=== PATIENT | female | born 1950 | race Caucasian/White ===

== ENCOUNTER 2016-04-28 09:56 | Inpatient (IN) | payer MEDICARE ==
--- NOTE | 2016-04-28 10:25 | ED ---
General Adult HPI - General Chief complaint: Shortness of Breath Stated complaint: diff breathing Time Seen by Provider: 04/28/16 10:00 Source: EMS, RN notes reviewed Mode of arrival: EMS Limitations: no limitations - History of Present Illness Initial comments: This is a 65-year-old female presents to the emergency department complaining of difficulty breathing. Patient states she has a past medical history significant for COPD. Patient states she still smokes. Patient comes in today because she has been coughing for the last 2 days and coughing up green sputum. Patient states she also has some difficulty breathing last 2 days and got worse this morning. Patient states she is not on oxygen at home. Patient denies any chest pain or palpitations. Patient denies any fever or chills. Patient denies any abdominal pain patient denies nausea vomiting diarrhea. Patient denies headache patient denies numbness weakness. Patient denies lightheadedness dizziness or near syncopal episode. Patient denies any recent injury or trauma - Related Data Home Medications Medication Instructions Recorded Confirmed Calcium Carbonate/Vitamin D3 1 each PO BID 04/28/16 04/28/16 [Calcium 500-Vit D3 600 Tablet] Allergies Allergy/AdvReac Type Severity Reaction Status Date / Time No Known Allergies Allergy Verified 04/28/16 10:06 Review of Systems ROS Statement: Those systems with pertinent positive or pertinent negative responses have been documented in the HPI. ROS Other: All systems not noted in ROS Statement are negative. Past Medical History Past Medical History: COPD History of Any Multi-Drug Resistant Organisms: None Reported Past Surgical History: No Surgical Hx Reported Past Psychological History: No Psychological Hx Reported Smoking Status: Current every day smoker Past Alcohol Use History: None Reported Past Drug Use History: None Reported General Exam - General Exam Comments Initial Comments: GENERAL: Patient is well-developed and well-nourished. Patient is nontoxic and well- hydrated and is in mild distress. ENT: Neck is soft and supple. No significant lymphadenopathy is noted. Oropharynx is clear. Moist mucous membranes. Neck has full range of motion without eliciting any pain. EYES: The sclera were anicteric and conjunctiva were pink and moist. Extraocular movements were intact and pupils were equal round and reactive to light. Eyelids were unremarkable. PULMONARY: Patient has decreased breath sounds but no wheezing is heard CARDIOVASCULAR: There is a regular rate and rhythm without any murmurs gallops or rubs. ABDOMEN: Soft and nontender with normal bowel sounds. No palpable organomegaly was noted. There is no palpable pulsatile mass. SKIN: Skin is clear with no lesions or rashes and otherwise unremarkable. NEUROLOGIC: Patient is alert and oriented x3. Cranial nerves II through XII are grossly intact. Motor and sensory are also intact. Normal speech, volume and content. Symmetrical smile. MUSCULOSKELETAL: Normal extremities with adequate strength and full range of motion. No lower extremity swelling or edema. No calf tenderness. LYMPHATICS: No significant lymphadenopathy is noted PSYCHIATRIC: Normal psychiatric evaluation. Normal interpersonal interactions appears functionally intact in deals appropriately with others. No signs of depression. No signs of anxiety. Limitations: no limitations Course Vital Signs 04/28/16 04/28/16 04/28/16 10:02 10:09 11:23 Temperature 98.2 F Pulse Rate 72 75 Respiratory 18 18 18 Rate Blood Pressure 134/82 110/69 O2 Sat by Pulse 99 96 Oximetry 04/28/16 04/28/16 12:39 12:46 Temperature Pulse Rate 82 97 Respiratory Rate Blood Pressure O2 Sat by Pulse Oximetry Medical Decision Making - Medical Decision Making EKG shows normal sinus rhythm at 71 bpm. It was on a 52 QRSs 80 QT interval is 436 QTC is 473. Patient's EKG shows T-wave inversions in the precordial leads however there is no EKG to compare to. I went back to reevaluate the patient she was satting at 90% on room air and she was moving very little air. I gave the patient a breathing treatment. Patient states she felt better but again she was very diminished and her pulse ox was low on room air. Spoke with Dr. Mehta he agreed to admit the patient admitted the patient I ordered breathing tubes the floor as well as steroids. Patient also states she was coughing up some green sputum. I started the patient on Levaquin by mouth. - Lab Data Result diagrams: 04/28/16 10:23 04/28/16 10:23 Lab Results 04/28/16 04/28/16 04/28/16 Range/Units 10:23 10:23 10:23 WBC 9.1 (3.8-10.6) k/uL RBC 4.40 (3.80-5.40) m/uL Hgb 14.0 (11.4-16.0) gm/dL Hct 42.4 (34.0-46.0) % MCV 96.3 (80.0-100.0) fL MCH 31.8 (25.0-35.0) pg MCHC 33.0 (31.0-37.0) g/dL RDW 12.9 (11.5-15.5) % Plt Count 310 (150-450) k/uL Neutrophils % 82 % Lymphocytes % 8 % Monocytes % 7 % Eosinophils % 0 % Basophils % 0 % Neutrophils # 7.5 (1.3-7.7) k/uL Lymphocytes # 0.7 L (1.0-4.8) k/uL Monocytes # 0.6 (0-1.0) k/uL Eosinophils # 0.0 (0-0.7) k/uL Basophils # 0.0 (0-0.2) k/uL PT (9.0-12.0) sec INR (<1.1) APTT (22.0-30.0) sec Sodium 137 (137-145) mmol/L Potassium 4.7 (3.5-5.1) mmol/L Chloride 98 (98-107) mmol/L Carbon Dioxide 27 (22-30) mmol/L Anion Gap 12 mmol/L BUN 19 H (7-17) mg/dL Creatinine 0.90 (0.52-1.04) mg/dL Est GFR (MDRD) Af Amer >60 (>60 ml/min/1.73 sqM) Est GFR (MDRD) Non-Af >60 (>60 ml/min/1.73 sqM) Glucose 106 H (74-99) mg/dL Calcium 9.2 (8.4-10.2) mg/dL Magnesium 2.0 (1.6-2.3) mg/dL Total Bilirubin 0.5 (0.2-1.3) mg/dL AST 32 (14-36) U/L ALT 44 (9-52) U/L Alkaline Phosphatase 84 (38-126) U/L Total Creatine Kinase 67 (30-135) U/L CK-MB (CK-2) 1.7 (0.0-2.4) ng/mL CK-MB (CK-2) Rel Index 2.5 Troponin I <0.012 (0.000-0.034) ng/mL Total Protein 6.7 (6.3-8.2) g/dL Albumin 4.0 (3.5-5.0) g/dL 04/28/16 Range/Units 10:23 WBC (3.8-10.6) k/uL RBC (3.80-5.40) m/uL Hgb (11.4-16.0) gm/dL Hct (34.0-46.0) % MCV (80.0-100.0) fL MCH (25.0-35.0) pg MCHC (31.0-37.0) g/dL RDW (11.5-15.5) % Plt Count (150-450) k/uL Neutrophils % % Lymphocytes % % Monocytes % % Eosinophils % % Basophils % % Neutrophils # (1.3-7.7) k/uL Lymphocytes # (1.0-4.8) k/uL Monocytes # (0-1.0) k/uL Eosinophils # (0-0.7) k/uL Basophils # (0-0.2) k/uL PT 10.6 (9.0-12.0) sec INR 1.0 (<1.1) APTT 22.9 (22.0-30.0) sec Sodium (137-145) mmol/L Potassium (3.5-5.1) mmol/L Chloride (98-107) mmol/L Carbon Dioxide (22-30) mmol/L Anion Gap mmol/L BUN (7-17) mg/dL Creatinine (0.52-1.04) mg/dL Est GFR (MDRD) Af Amer (>60 ml/min/1.73 sqM) Est GFR (MDRD) Non-Af (>60 ml/min/1.73 sqM) Glucose (74-99) mg/dL Calcium (8.4-10.2) mg/dL Magnesium (1.6-2.3) mg/dL Total Bilirubin (0.2-1.3) mg/dL AST (14-36) U/L ALT (9-52) U/L Alkaline Phosphatase (38-126) U/L Total Creatine Kinase (30-135) U/L CK-MB (CK-2) (0.0-2.4) ng/mL CK-MB (CK-2) Rel Index Troponin I (0.000-0.034) ng/mL Total Protein (6.3-8.2) g/dL Albumin (3.5-5.0) g/dL Disposition Clinical Impression: Acute exacerbation of chronic obstructive airways disease Disposition: ADMITTED IP TO THIS HOSP Instructions: Acute Bronchitis (ED) Referrals: None,Stated [Primary Care Provider] - 1-2 days Time of Disposition: 13:02
--- NOTE | 2016-04-28 10:36 | XR ---
EXAMINATION TYPE: XR chest 2V DATE OF EXAM: 04/28/2016 10:32 AM COMPARISON: NONE HISTORY: Difficulty breathing FINDINGS: The lungs are clear and there is no pneumothorax, pleural effusion, or focal pneumonia. Calcified gr anuloma right upper lobe. Hyperinflation suggests COPD. Degenerative change of the spine. No overt fa ilure. IMPRESSION: 1. No acute process. Correlate for COPD.
[2016-04-28 10:38] LABS: Basophils % (A) 0 %; CH 31.6; Eosinophils % (A) 0 %; HCT 42.4 % (34.0-46.0); HDW 2.31; Luc # (Auto) 0.27; Luc % (Auto) 3; Lymphocytes # (A) 0.7 k/uL (1.0-4.8); Lymphocytes % (A) 8 %; MCH 31.8 pg (25.0-35.0); MCV 96.3 fL (80.0-100.0); Mean Platelet Volume 6.7; Monocytes # (A) 0.6 k/uL (0-1.0); Monocytes % (A) 7 %; Neutrophils # (A) 7.5 k/uL (1.3-7.7); Neutrophils % (A) 82 %; RDW 12.9 % (11.5-15.5); WBC 9.1 k/uL (3.8-10.6); WBC (Perox) 9.54
[2016-04-28 10:44] LABS: Partial Thromboplastin Time 22.9 sec (22.0-30.0); Prothrombin Time 10.6 sec (9.0-12.0)
[2016-04-28 10:49] LABS: ALT 44 U/L (9-52); AST 32 U/L (14-36); Alkaline Phosphatase 84 U/L (38-126); Anion Gap 12 mmol/L; Blood Urea Nitrogen 19 mg/dL (7-17); Calcium 9.2 mg/dL (8.4-10.2); Carbon Dioxide 27 mmol/L (22-30); Chloride 98 mmol/L (98-107); Glucose 106 mg/dL (74-99); Non-African American GFR(MDRD) >60 (>60 ml/min/1.73 sqM); Potassium 4.7 mmol/L (3.5-5.1); Sodium 137 mmol/L (137-145); Total Bilirubin 0.5 mg/dL (0.2-1.3); Total Protein 6.7 g/dL (6.3-8.2)
[2016-04-28 10:59] LABS: Creatine Kinase 67 U/L (30-135)
[2016-04-28 11:12] LABS: Creatine Kinase MB 1.7 ng/mL (0.0-2.4); Troponin I <0.012 ng/mL (0.000-0.034)
[2016-04-28] MEDS ORDERED: IPRATROPIUM-ALBUTEROL 3 ML NEB INHALATION STA (12:31)
[2016-04-28] MEDS: LEVOFLOXACIN 500 MG TAB PO SCH (17:16)
[2016-04-28] MEDS: methylPREDNISolone SOD SUCCI 125 MG/2 ML VIAL IV SCH (17:17)
[2016-04-28] MEDS: NICOTINE 14MG/24HR PATCH TRANSDERM SCH (20:12)
[2016-04-28] MEDS: ALPRAZolam 0.25 MG TAB PO PRN (20:12)
[2016-04-28] MEDS ORDERED: guaiFENesin 600 MG TABLET.ER PO PRN (22:14)
[2016-04-29] MEDS: methylPREDNISolone SOD SUCCI 125 MG/2 ML VIAL IV SCH ×3 (00:14→12:38)
[2016-04-29] MEDS: TEMAZEPAM 30 MG CAP PO PRN ×2 (00:19→21:29)
[2016-04-29] MEDS: IPRATROPIUM-ALBUTEROL 3 ML NEB INHALATION PRN ×3 (07:38→19:20)
[2016-04-29] MEDS: CALCIUM CARB-VIT D 500MG-200UN 1 EACH TAB PO SCH ×2 (07:46→20:33)
[2016-04-29] MEDS: ASPIRIN 81 MG CHEW PO SCH (07:46)
[2016-04-29] MEDS: HEPARIN SODIUM,PORCINE 5,000 UNIT/ML 1 ML VIAL SQ SCH ×2 (07:46→20:33)
[2016-04-29] MEDS: PANTOPRAZOLE 40 MG TABLET PO SCH (07:46)
[2016-04-29] MEDS: NAPROXEN 250 MG TAB PO SCH (07:47)
[2016-04-29] MEDS: NICOTINE 14MG/24HR PATCH TRANSDERM SCH (07:47)
[2016-04-29] MEDS: INSULIN LISPRO (humaLOG) 300 UNIT/3 ML VIAL SQ SCH ×4 (07:48→20:33)
[2016-04-29 07:49] LABS: Basophils % (A) 0 %; CH 31.7; CHCM 33.3; Eosinophils % (A) 0 %; HDW 2.28; HGB 14.4 gm/dL (11.4-16.0); Luc # (Auto) 0.03; Luc % (Auto) 0; Lymphocytes # (A) 0.5 k/uL (1.0-4.8); Lymphocytes % (A) 6 %; MCH 31.3 pg (25.0-35.0); MCHC 32.7 g/dL (31.0-37.0); MCV 95.7 fL (80.0-100.0); Mean Platelet Volume 6.6; Monocytes # (A) 0.1 k/uL (0-1.0); Monocytes % (A) 2 %; Neutrophils # (A) 7.8 k/uL (1.3-7.7); Neutrophils % (A) 92 %; RDW 12.8 % (11.5-15.5); WBC 8.6 k/uL (3.8-10.6); WBC (Perox) 8.81
[2016-04-29 07:58] LABS: Glucose,Whole Blood 131 mg/dL (75-99)
[2016-04-29] MEDS ORDERED: BUDESONIDE 1 MG/2 ML NEBU INHALATION SCH (08:00)
[2016-04-29] MEDS ORDERED: FORMOTEROL FUMARATE 20 MCG/2 ML NEBU INHALATION SCH (08:00)
[2016-04-29 08:07] LABS: Anion Gap 12 mmol/L; Blood Urea Nitrogen 16 mg/dL (7-17); Calcium 9.3 mg/dL (8.4-10.2); Carbon Dioxide 24 mmol/L (22-30); Chloride 102 mmol/L (98-107); Glucose 133 mg/dL (74-99); Non-African American GFR(MDRD) >60 (>60 ml/min/1.73 sqM); Potassium 4.9 mmol/L (3.5-5.1); Sodium 138 mmol/L (137-145)
[2016-04-29] MEDS: HYDROcodone/APAP 5-325MG 1 EACH TAB PO PRN ×2 (08:48→17:20)
[2016-04-29] MEDS: ALPRAZolam 0.25 MG TAB PO PRN ×2 (08:48→20:33)
--- NOTE | 2016-04-29 09:16 | HP ---
DATE OF ADMISSION: 04/28/2016 CHIEF COMPLAINT: Shortness of breath. HISTORY OF PRESENT ILLNESS: This 65-year-old woman with a past history of COPD, history of DVT, history of depression, being followed by no primary physician in the outpatient setting, was complaining of increasing shortness of breath. The patient apparently is continuing smoking. The patient had shortness of breath for past several days. Because of increasing difficulties the patient came to [facility] and admitted for further evaluation and treatment. The patient also coughing up green sputum also. There is no history of fever or rigors. No history of any headache, loss of consciousness, seizures. Chest x-ray done on admission showed chronic obstructive pulmonary disease without evidence of pneumonia. PAST MEDICAL HISTORY: History of COPD, history of deep venous thrombosis, history of depression. Medications prior to admission include: 2. Aleve 20 mg p.o. daily. 3. Vitamin D3 1 p.o. b.i.d. 4. Aspirin 81 mg daily. ALLERGIES: None. FAMILY HISTORY: History of myocardial infarction in the family. SOCIAL HISTORY: Smoking, currently daily smoking. No history of alcohol intake. REVIEW OF SYSTEMS: ENT: No diminished hearing or diminished vision. CARDIOVASCULAR: No angina or palpitations. RESPIRATORY: As mentioned earlier. GI: No nausea. : No dysuria. NERVOUS SYSTEM: No numbness or weakness. ALLERGY/IMMUNOLOGY: No asthma or hayfever. MUSCULOSKELETAL: As mentioned earlier. HEMATOLOGY: No history of anemia. ENDOCRINE: No history of diabetes or hypothyroidism. CONSTITUTIONAL: As mentioned earlier. DERMATOLOGY: Negative. RHEUMATOLOGY: Negative. PSYCHIATRY: As mentioned earlier PHYSICAL EXAMINATION: The patient is alert and oriented x3. Pulse 71, blood pressure 140/72, respirations 20, temperature is 97.8, pulse ox 97% on 3 L. HEENT: Conjunctivae normal. NECK: No jugular venous distention. CARDIOVASCULAR: S1 and S2, muffled. RESPIRATORY: Breath sounds diminished at the bases. A few scattered rhonchi and crackles. Expiratory wheezing. Chest emphysematous. ABDOMEN: Soft, nontender. No mass palpable. LEGS: No edema, no swelling. NERVOUS SYSTEM: Higher function as mentioned. Moves all four limbs. No focal motor deficits. LYMPHATIC: No lymphadenopathy in the neck, axillae or groin. SKIN: No ulcer, rash or bleeding. JOINTS: No active deforming arthropathy. LABS: CBC within normal limits. BUN is 19, glucose 106. ASSESSMENT: 1. Chronic obstructive pulmonary disease, acute exacerbation with acute purulent tracheobronchitis. 2. Continued ongoing nicotine dependence. 3. Increased random blood sugar possibly secondary to steroids. 4. Chronic obstructive pulmonary disease. 5. History of deep venous thrombosis. 6. History of the depression. 7. Continued ongoing nicotine dependence. 8. Body mass index 78.6 with moderate severe protein calorie malnutrition. RECOMMENDATIONS AND DISCUSSION: In this 65-year-old who presented with multiple complex medical issues, we will monitor the patient closely. Continue the current medications. Continue to optimize bronchodilator treatment, IV steroids. Monitor blood sugars closely. Empiric antibiotics. I also recommend a consultation with Dr. Dill. Otherwise, guarded prognosis because of multiple complex medical issues. Further recommendations to follow. I also recommend the patient to follow up with primary physician in the outpatient setting and as well as DVT prophylaxis as well as stop smoking. ROVERTOD
[2016-04-29 11:26] LABS: Glucose,Whole Blood 142 mg/dL (75-99)
[2016-04-29] MEDS: MULTIVITAMINS, THERA 1 EACH TAB PO SCH (12:38)
[2016-04-29 13:21] LABS: Hemoglobin A1C 5.4 % (4.2-6.1)
--- NOTE | 2016-04-29 14:14 | P.CNPUL ---
History of Present Illness Consult date: 04/29/16 Requesting physician: Gaudencio Mehta Reason for consult: COPD Chief complaint: Shortness of breath History of present illness: This is a 65-year-old white female, smoker, known to have history of COPD, but she is not O2 dependent, not prednisone dependent. Patient came in with 2 days history of cough wheezing shortness of breath. Cough is productive with whitish phlegm. No fever no chills no hemoptysis no chest pain. Chest x-ray showed no evidence of infiltrate, but it was consistent with COPD, emphysema. Patient was admitted, and this consult was initiated. Since admission the patient is already showing significant improvement, hence I believe the patient could be considered for discharge planning either today or tomorrow at the most. Patient denies any headaches no blurred vision no dizziness. No nausea no vomiting no abdominal pain. No melena no hematemesis is no dysuria frequency or urgency. Denies any musculoskeletal symptoms. Overall the patient made a significant improvement since admission. Review of Systems 14 point review of systems were obtained, please refer to pertinent positives and negatives in HPI Past Medical History Past Medical History: COPD, Deep Vein Thrombosis (DVT) Additional Past Medical History / Comment(s): DVT R leg History of Any Multi-Drug Resistant Organisms: None Reported Past Surgical History: No Surgical Hx Reported Additional Past Surgical History / Comment(s): colonoscopy-normal, D&C Past Anesthesia/Blood Transfusion Reactions: No Reported Reaction Past Psychological History: Depression Additional Psychological History / Comment(s): Pt resides alone. She has a cat. She uses no assistive devices. She drives. Smoking Status: Current every day smoker Past Alcohol Use History: None Reported Additional Past Alcohol Use History / Comment(s): Pt states she started smoking at the age of 18 or 19 and is over a ppd smoker. Past Drug Use History: None Reported - Past Family History Father Family Medical History: Myocardial Infarction (DC) Additional Family Medical History / Comment(s): Father of a DC at the age of 54yrs. He also had cardiac valve disease and tuberculosis. Mother Family Medical History: No Reported History Additional Family Medical History / Comment(s): Mother was healthy and lived to be 93 yrs old. Medications and Allergies Home Medications Medication Instructions Recorded Confirmed Type Aspirin 81 mg PO DAILY 04/28/16 04/28/16 History Calcium Carbonate/Vitamin D3 1 each PO BID 04/28/16 04/28/16 History [Calcium 500-Vit D3 600 Tablet] Naproxen Sodium [Aleve] 220 mg PO DAILY 04/28/16 04/28/16 History guaiFENesin [Mucinex] 1,200 mg PO DAILY PRN 04/28/16 04/28/16 History Allergies Allergy/AdvReac Type Severity Reaction Status Date / Time No Known Allergies Allergy Verified 04/28/16 13:41 Physical Exam Vitals: Vital Signs Temp Pulse Pulse Resp BP Pulse Ox 04/29/16 08:47 91 L 04/29/16 08:04 96 04/29/16 07:53 92 04/29/16 07:52 92 04/29/16 07:42 88 88 L 04/29/16 07:30 97.1 F L 73 20 120/82 89 L 04/28/16 22:23 97.8 F 85 16 129/72 95 04/28/16 15:48 71 20 04/28/16 15:00 97.8 F 71 20 140/72 97 Intake and Output 04/28/16 04/29/16 04/29/16 22:59 06:59 14:59 Intake Total 400 Balance 400 Intake: Oral 400 Other: Voiding Method Bedside Commode Bedside Commode # Voids 1 3 Physical Exam: Revealed a 65-year-old female in no distress. HEENT:[Neck is supple.] [No neck masses.] [No thyromegaly.] [No JVD.] Chest: [Slightly diminished breath sounds at the bases, no crackles or rhonchi or wheezes..] Cardiac Exam: [Normal S1 and S2, no S3 gallop, no murmur.] Abdomen: [Soft, nontender, no megaly, no rebound, no guarding, normal bowel sounds.] Extremities: [No clubbing, no edema, no cyanosis.] Neurological Exam: [No focal neurologic deficit.] Results - Laboratory Findings CBC and BMP: 04/29/16 07:16 04/29/16 07:16 PT/INR, D-dimer PT 10.6 sec (9.0-12.0) 04/28/16 10:23 INR 1.0 (<1.1) 04/28/16 10:23 Abnormal lab findings: Abnormal Labs 12/04/29/16 04/29/16 07:16 07:16 07:53 Neutrophils # 7.8 H Lymphocytes # 0.5 L Glucose 133 H POC Glucose (mg/dL) 131 H 04/29/16 11:14 Neutrophils # Lymphocytes # Glucose POC Glucose (mg/dL) 142 H - Diagnostic Findings Chest x-ray: image reviewed (No evidence no evidence of active disease) Assessment and Plan Plan: Impression: Acute exacerbation of COPD, purulent tracheobronchitis, no evidence of pneumonia based on the chest x-ray. History of tobacco dependence syndrome. Recommendation: Patient was counseled regarding smoking cessation, I reviewed her present medications, I believe the patient could be considered for possible discharge planning in the next 24 hours. I will change her Solu-Medrol to oral prednisone, she will remain on oral Levaquin, she will remain on the same bronchodilators including albuterol and Atrovent and Symbicort. Again consider discharge planning later today or in a.m. Time with Patient: Greater than 30
[2016-04-29] MEDS: LEVOFLOXACIN 500 MG TAB PO SCH (15:04)
[2016-04-29] MEDS: predniSONE 10 MG TAB PO SCH (15:04)
[2016-04-29 15:28] VITALS: BMI 17.5
[2016-04-29 17:15] LABS: Glucose,Whole Blood 150 mg/dL (75-99)
[2016-04-29] MEDS: SYMBICORT 160-4.5 MCG INHALER INHALATION SCH (19:20)
[2016-04-29 20:14] LABS: Glucose,Whole Blood 156 mg/dL (75-99)
--- NOTE | 2016-04-29 22:17 | PN ---
DATE OF SERVICE: 04/29/2016 This 65-year-old woman who was admitted with COPD exacerbation, acute purulent tracheobronchitis. Also had history of ongoing nicotine dependence. The patient is severely hypoxemic today after removing the oxygen and the pulse ox dropped into the upper 80s. Dr. Dill evaluation in progress at this time. PAST MEDICAL HISTORY: Reviewed. REVIEW OF SYSTEMS: CARDIOVASCULAR: no angina. RESPIRATORY: As mentioned earlier. GASTROINTESTINAL: As mentioned earlier. : No dysuria. Nervous system: no numbness, weakness. The current medications: 1. Greer 5 mg. 2. DuoNeb q.i.d. and p.r.n. 3. Aspirin. 4. two puffs b.i.d. 5. Os-Ken with Vitamin D. 6. Mucinex. 7. Levaquin 500 daily. 8. Multivitamins. 9. Habitrol. 10. Restoril. PHYSICAL EXAMINATION: The patient is alert and oriented x2. Pulse is 88, blood pressure 120/82, respiratory rate 20, temperature 97.9, pulse ox 89% on 3 L. HEENT: Conjunctivae normal. NECK: No jugular venous distention. CARDIOVASCULAR: S1, S2 muffled. RESPIRATORY: Breath sounds diminished at the bases. Bilateral scattered rhonchi and crackles. ABDOMEN: Soft, nontender. No mass palpable. LEGS: No edema. No swelling. CENTRAL NERVOUS SYSTEM: No focal deficits. Labs are CBC within normal limits and glucose 133. ASSESSMENT: 1. Chronic obstructive pulmonary disease, acute exacerbation, with acute purulent tracheobronchitis. 2. Continued ongoing nicotine dependence. 3. Increased random blood sugar possibly secondary to steroids. 4. Chronic obstructive pulmonary disease. 6. History of deep venous thrombosis. 7. History of depression. 8. Continued ongoing nicotine dependence. 9. Body mass index of 17.6 indicating of severe protein calorie malnutrition. 10. FULL CODE. RECOMMENDATIONS AND DISCUSSION: In this 65-year-old woman who presented with multiple complex medical issues, we will monitor the patient closely, continue the current medications, continue with symptomatic treatment, continue steroids, continue the bronchodilators. Continue with empiric antibiotics. Increase ambulation. Otherwise, Megace for ( ) appetite stimulant. Guarded prognosis because of multiple complex medical issues. Further recommendations to follow. MTDD
[2016-04-30] MEDS: IPRATROPIUM-ALBUTEROL 3 ML NEB INHALATION PRN ×3 (07:02→17:03)
[2016-04-30] MEDS: SYMBICORT 160-4.5 MCG INHALER INHALATION SCH ×2 (07:02→20:56)
[2016-04-30 07:24] LABS: Glucose,Whole Blood 99 mg/dL (75-99)
[2016-04-30 07:48] VITALS: RESP 18
[2016-04-30 08:23] LABS: Basophils % (A) 0 %; CH 31.8; CHCM 33.6; Eosinophils % (A) 0 %; HCT 43.7 % (34.0-46.0); HDW 2.33; HGB 14.6 gm/dL (11.4-16.0); Luc # (Auto) 0.13; Luc % (Auto) 1; Lymphocytes % (A) 7 %; MCH 31.7 pg (25.0-35.0); MCHC 33.3 g/dL (31.0-37.0); MCV 95.1 fL (80.0-100.0); Mean Platelet Volume 6.4; Monocytes # (A) 0.8 k/uL (0-1.0); Monocytes % (A) 6 %; Neutrophils # (A) 12.1 k/uL (1.3-7.7); Neutrophils % (A) 86 %; RDW 12.8 % (11.5-15.5); WBC 14.1 k/uL (3.8-10.6); WBC (Perox) 14.38
[2016-04-30 08:32] LABS: Anion Gap 8 mmol/L; Blood Urea Nitrogen 18 mg/dL (7-17); Calcium 9.5 mg/dL (8.4-10.2); Carbon Dioxide 30 mmol/L (22-30); Chloride 101 mmol/L (98-107); Glucose 102 mg/dL (74-99); Non-African American GFR(MDRD) >60 (>60 ml/min/1.73 sqM); Potassium 4.1 mmol/L (3.5-5.1); Sodium 139 mmol/L (137-145)
[2016-04-30] MEDS: PANTOPRAZOLE 40 MG TABLET PO SCH (08:33)
[2016-04-30] MEDS: INSULIN LISPRO (humaLOG) 300 UNIT/3 ML VIAL SQ SCH ×4 (08:33→20:39)
[2016-04-30] MEDS: NICOTINE 14MG/24HR PATCH TRANSDERM SCH (08:33)
[2016-04-30] MEDS: ASPIRIN 81 MG CHEW PO SCH (08:33)
[2016-04-30] MEDS: CALCIUM CARB-VIT D 500MG-200UN 1 EACH TAB PO SCH ×2 (08:34→20:39)
[2016-04-30] MEDS: predniSONE 10 MG TAB PO SCH (08:34)
[2016-04-30] MEDS: MEGESTROL 40 MG TAB PO SCH (08:34)
[2016-04-30] MEDS: NAPROXEN 250 MG TAB PO SCH (08:34)
[2016-04-30] MEDS: HEPARIN SODIUM,PORCINE 5,000 UNIT/ML 1 ML VIAL SQ SCH ×2 (08:34→20:39)
[2016-04-30] MEDS: ONDANSETRON 4 MG/2 ML VIAL IVP PRN ×2 (09:13→20:39)
[2016-04-30] MEDS: HYDROcodone/APAP 5-325MG 1 EACH TAB PO PRN ×2 (09:17→18:47)
[2016-04-30 11:19] LABS: Glucose,Whole Blood 124 mg/dL (75-99)
--- NOTE | 2016-04-30 14:28 | P.PN ---
Subjective Principal diagnosis: Acute exacerbation of COPD This is a 65-year-old white female, smoker, known to have history of COPD, but she is not O2 dependent, not prednisone dependent. Patient came in with 2 days history of cough wheezing shortness of breath. Cough is productive with whitish phlegm. No fever no chills no hemoptysis no chest pain. Chest x-ray showed no evidence of infiltrate, but it was consistent with COPD, emphysema. Patient was admitted, and this consult was initiated. Since admission the patient is already showing significant improvement, hence I believe the patient could be considered for discharge planning either today or tomorrow at the most. Patient denies any headaches no blurred vision no dizziness. No nausea no vomiting no abdominal pain. No melena no hematemesis is no dysuria frequency or urgency. Denies any musculoskeletal symptoms. Overall the patient made a significant improvement since admission. Reevaluated on 04/30/2016, patient continues to have some shortness of breath with any activity, requiring oxygen, patient in the meantime would like to be discharged home. I explained to the patient today that we could potentially send her home on the same course of bronchodilators we have her on plus home O2 if she qualifies for home oxygen with 6 minute walk today. Or if the patient remains desaturating below 89% on room air. Then she basically qualifies for home O2. Patient never had oxygen at home before, and she was smoking until very recently. I explained to her the importance of follow-up with me regarding her COPD on outpatient basis. Objective - Vital Signs Vital signs: Vital Signs Temp 97.7 F 04/30/16 07:00 Pulse 84 04/30/16 11:19 Resp 18 04/30/16 07:00 BP 110/71 04/30/16 07:00 Pulse Ox 84 L 04/30/16 14:17 Intake & Output 04/29/16 04/30/16 04/30/16 18:59 06:59 18:59 Weight 42.184 kg Other: Voiding Method Bedside Commode Bedside Commode Bedside Commode # Voids 2 1 - Exam Physical Exam: Revealed a 65-year-old female in no distress. HEENT:[Neck is supple.] [No neck masses.] [No thyromegaly.] [No JVD.] Chest: [Slightly diminished breath sounds at the bases, no crackles or rhonchi or wheezes..] Cardiac Exam: [Normal S1 and S2, no S3 gallop, no murmur.] Abdomen: [Soft, nontender, no megaly, no rebound, no guarding, normal bowel sounds.] Extremities: [No clubbing, no edema, no cyanosis.] Neurological Exam: [No focal neurologic deficit.] - Labs CBC & Chem 7: 04/30/16 07:43 04/30/16 07:43 Labs: Abnormal Lab Results - Last 24 Hours (Table) 04/29/16 04/29/16 04/30/16 Range/Units 17:02 20:13 07:43 WBC 14.1 H (3.8-10.6) k/uL Neutrophils # 12.1 H (1.3-7.7) k/uL BUN (7-17) mg/dL Glucose (74-99) mg/dL POC Glucose (mg/dL) 150 H 156 H (75-99) mg/dL 04/30/16 04/30/16 Range/Units 07:43 11:17 WBC (3.8-10.6) k/uL Neutrophils # (1.3-7.7) k/uL BUN 18 H (7-17) mg/dL Glucose 102 H (74-99) mg/dL POC Glucose (mg/dL) 124 H (75-99) mg/dL Assessment and Plan Plan: Impression: Acute exacerbation of COPD, purulent tracheobronchitis, no evidence of pneumonia based on the chest x-ray. History of tobacco dependence syndrome. Recommendation: Patient was counseled regarding smoking cessation, I reviewed her present medications, I believe the patient could be considered for possible discharge planning in the next 24 hours. I will change her Solu-Medrol to oral prednisone, she will remain on oral Levaquin, she will remain on the same bronchodilators including albuterol and Atrovent and Symbicort. Again consider discharge planning later today, can set up for home O2 and if she qualifies the patient could go home on oxygen 2 L nasal cannula. And she will remain on the same bronchodilators as listed on this admission, plus prednisone 30 mg tapered over 2 weeks. Must have follow-up with me in the office within few days. Time with Patient: Less than 30
[2016-04-30] MEDS: LEVOFLOXACIN 500 MG TAB PO SCH (15:24)
[2016-04-30] MEDS: MULTIVITAMINS, THERA 1 EACH TAB PO SCH (15:24)
[2016-04-30 18:29] LABS: Glucose,Whole Blood 144 mg/dL (75-99)
[2016-04-30 20:11] LABS: Glucose,Whole Blood 133 mg/dL (75-99)
[2016-04-30] MEDS: ALPRAZolam 0.25 MG TAB PO PRN (20:39)
[2016-04-30] MEDS: TEMAZEPAM 30 MG CAP PO PRN (21:58)
[2016-05-01] MEDS: SYMBICORT 160-4.5 MCG INHALER INHALATION SCH (07:01)
[2016-05-01 07:08] LABS: Glucose,Whole Blood 94 mg/dL (75-99)
[2016-05-01 08:04] LABS: Basophils % (A) 0 %; CH 31.7; CHCM 33.5; Eosinophils % (A) 0 %; HCT 43.3 % (34.0-46.0); HDW 2.35; HGB 14.4 gm/dL (11.4-16.0); Luc # (Auto) 0.14; Luc % (Auto) 1; Lymphocytes # (A) 1.9 k/uL (1.0-4.8); Lymphocytes % (A) 18 %; MCH 31.5 pg (25.0-35.0); MCHC 33.1 g/dL (31.0-37.0); MCV 95.2 fL (80.0-100.0); Mean Platelet Volume 6.4; Monocytes # (A) 0.8 k/uL (0-1.0); Monocytes % (A) 7 %; Neutrophils # (A) 7.7 k/uL (1.3-7.7); Neutrophils % (A) 73 %; RBC 4.55 m/uL (3.80-5.40); RDW 12.9 % (11.5-15.5); WBC 10.5 k/uL (3.8-10.6); WBC (Perox) 10.77
[2016-05-01 08:18] LABS: Anion Gap 8 mmol/L; Blood Urea Nitrogen 15 mg/dL (7-17); Calcium 9.5 mg/dL (8.4-10.2); Carbon Dioxide 31 mmol/L (22-30); Chloride 100 mmol/L (98-107); Glucose 88 mg/dL (74-99); Non-African American GFR(MDRD) >60 (>60 ml/min/1.73 sqM); Potassium 4.2 mmol/L (3.5-5.1); Sodium 139 mmol/L (137-145)
[2016-05-01] MEDS: INSULIN LISPRO (humaLOG) 300 UNIT/3 ML VIAL SQ SCH ×2 (08:44→11:34)
[2016-05-01] MEDS: MEGESTROL 40 MG TAB PO SCH (08:46)
[2016-05-01] MEDS: ASPIRIN 81 MG CHEW PO SCH (08:46)
[2016-05-01] MEDS: NAPROXEN 250 MG TAB PO SCH (08:46)
[2016-05-01] MEDS: NICOTINE 14MG/24HR PATCH TRANSDERM SCH (08:46)
[2016-05-01] MEDS: CALCIUM CARB-VIT D 500MG-200UN 1 EACH TAB PO SCH (08:46)
[2016-05-01] MEDS: HEPARIN SODIUM,PORCINE 5,000 UNIT/ML 1 ML VIAL SQ SCH (08:46)
[2016-05-01] MEDS: PANTOPRAZOLE 40 MG TABLET PO SCH (08:47)
[2016-05-01] MEDS: predniSONE 10 MG TAB PO SCH (08:47)
[2016-05-01 11:23] LABS: Glucose,Whole Blood 96 mg/dL (75-99)
[2016-05-01] MEDS: MULTIVITAMINS, THERA 1 EACH TAB PO SCH (11:59)
--- NOTE | 2016-05-01 12:09 | PN ---
DATE OF SERVICE: 04/30/2016 This 65-year-old woman who was admitted with COPD acute exacerbation, acute purulent tracheobronchitis is improved slightly. No chest pain, no palpitations. No fever. Patient is still short of breath. Patient is keen on going home. On exam, alert and oriented x3. Pulse 69, blood pressure 130/72, respirations 18, temperature 97.2, pulse ox 93% on 4-L. HEENT: Conjunctivae normal. NECK: No jugular venous distention. CARDIOVASCULAR: S1 and S2, muffled. RESPIRATORY: Breath sounds diminished at the bases. Bilateral scattered rhonchi and crackles. ABDOMEN: Soft, nontender. LEGS: No edema, no swelling. NERVOUS SYSTEM: No focal deficits. LABS: WBC 14. Accu-Cheks noted. ASSESSMENT: 1. Chronic obstructive pulmonary disease acute exacerbation with acute purulent tracheobronchitis. 2. Continued ongoing nicotine dependence. 3. Chronic hypoxic respiratory failure. 4. Increased random blood sugar possibly secondary steroids. 5. History of chronic obstructive pulmonary disease. 6. History of deep venous thrombosis. 7. History of depression. 8. History of continued ongoing nicotine dependence. 9. Body mass index 17.3 indicating severe protein calorie malnutrition. 10. FULL CODE. RECOMMENDATIONS AND DISCUSSION: I recommend to continue the current medications, continue monitoring and symptomatic treatment. Continue with current medications, arrange bronchodilators and home oxygen at home. Guarded prognosis because of multiple complex medical issues. Further recommendations to follow.
[2016-05-01 14:48] VITALS: BP 138/80; PULSE 80; TEMP 97.9
--- NOTE | 2016-05-01 15:34 | P.PN ---
Subjective Principal diagnosis: Acute exacerbation of COPD This is a 65-year-old white female, smoker, known to have history of COPD, but she is not O2 dependent, not prednisone dependent. Patient came in with 2 days history of cough wheezing shortness of breath. Cough is productive with whitish phlegm. No fever no chills no hemoptysis no chest pain. Chest x-ray showed no evidence of infiltrate, but it was consistent with COPD, emphysema. Patient was admitted, and this consult was initiated. Since admission the patient is already showing significant improvement, hence I believe the patient could be considered for discharge planning either today or tomorrow at the most. Patient denies any headaches no blurred vision no dizziness. No nausea no vomiting no abdominal pain. No melena no hematemesis is no dysuria frequency or urgency. Denies any musculoskeletal symptoms. Overall the patient made a significant improvement since admission. Reevaluated on 04/30/2016, patient continues to have some shortness of breath with any activity, requiring oxygen, patient in the meantime would like to be discharged home. I explained to the patient today that we could potentially send her home on the same course of bronchodilators we have her on plus home O2 if she qualifies for home oxygen with 6 minute walk today. Or if the patient remains desaturating below 89% on room air. Then she basically qualifies for home O2. Patient never had oxygen at home before, and she was smoking until very recently. I explained to her the importance of follow-up with me regarding her COPD on outpatient basis. Reevaluated on 05/01/2016, feeling better, patient is wondering if she could be discharged home. Patient qualified for home O2, and clearly she has severe underlying COPD, patient is maximized on present course of bronchodilators. Considering her slight improvement, I believe it is not inappropriate to initiate discharge planning for today or tomorrow. On physical examination she has mostly diminished breath sounds bilaterally, some wheezing on forced expiratory maneuver only. Objective - Vital Signs Vital signs: Vital Signs Temp 97.9 F 05/01/16 14:46 Pulse 80 05/01/16 14:46 Resp 18 05/01/16 14:46 BP 138/80 05/01/16 14:46 Pulse Ox 91 L 05/01/16 15:25 Intake & Output 04/30/16 05/01/16 05/01/16 18:59 06:59 18:59 Intake Total 315 Balance 315 Intake: Oral 315 Other: Voiding Method Bedside Commode Bedside Commode Bedside Commode # Voids 1 2 1 - Exam Physical Exam: Revealed a 65-year-old female in no distress. HEENT:[Neck is supple.] [No neck masses.] [No thyromegaly.] [No JVD.] Chest: [Slightly diminished breath sounds at the bases, slight wheezing on forced expiratory maneuver] Cardiac Exam: [Normal S1 and S2, no S3 gallop, no murmur.] Abdomen: [Soft, nontender, no megaly, no rebound, no guarding, normal bowel sounds.] Extremities: [No clubbing, no edema, no cyanosis.] Neurological Exam: [No focal neurologic deficit.] - Labs CBC & Chem 7: 05/01/16 07:24 05/01/16 07:24 Labs: Abnormal Lab Results - Last 24 Hours (Table) 04/30/16 04/30/16 05/01/16 Range/Units 17:39 19:58 07:24 Carbon Dioxide 31 H (22-30) mmol/L POC Glucose (mg/dL) 144 H 133 H (75-99) mg/dL Assessment and Plan Plan: Impression: Acute exacerbation of COPD, purulent tracheobronchitis, no evidence of pneumonia based on the chest x-ray. History of tobacco dependence syndrome. Recommendation: Patient was counseled regarding smoking cessation, I reviewed her present medications, I believe the patient could be considered for possible discharge planning today patient is presently on prednisone instead of Solu- Medrol, she will remain on oral Levaquin, she will remain on the same bronchodilators including albuterol and Atrovent and Symbicort. Again consider discharge planning later today, can set up for home O2 and if she qualifies the patient could go home on oxygen 2 L nasal cannula. And she will remain on the same bronchodilators as listed on this admission, plus prednisone 30 mg tapered over 2 weeks. Must have follow-up with me in the office within few days. Time with Patient: Less than 30
[2016-05-01] MEDS: HYDROcodone/APAP 5-325MG 1 EACH TAB PO PRN (15:50)
[2016-05-01] MEDS: LEVOFLOXACIN 500 MG TAB PO SCH (15:50)
--- NOTE | 2016-05-03 17:00 | DS ---
DATE OF ADMISSION: 04/28/2016 DATE OF DISCHARGE: 05/01/2016 FINAL DIAGNOSIS(ES): 1. Chronic obstructive pulmonary disease acute exacerbation, with acute purulent tracheobronchitis. 2. Continued ongoing nicotine dependence. 3. Chronic hypoxic respiratory failure on home O2 nasal cannula 3.5 liters. 4. Increased random blood sugar possibly secondary to steroids. 5. History of chronic obstructive pulmonary disease. 6. History of deep venous thrombosis. 7. History of depression. 8. Body mass index 17.9 indication severe protein calorie malnutrition. 9. FULL CODE. DISCHARGE DISPOSITION: The patient will be discharged in a stable condition with guarded prognosis. Dr. Dill cleared the patient for discharge. HISTORY OF PRESENT ILLNESS: This 65 -year-old woman with past medical history of multiple medical problems including chronic obstructive pulmonary disease was admitted with chronic obstructive pulmonary disease acute exacerbation. Treated with bronchodilators and steroids, antibiotics and improved significantly. On exam, vital signs are stable. CARDIOVASCULAR SYSTEM: S1, S2 muffled. ABDOMEN: Soft. Nontender. RESPIRATORY: Breath sounds diminished at the bases. ABDOMEN: Soft, nontender. CENTRAL NERVOUS SYSTEM: No focal deficits. DISCHARGE ADVICE AND MEDICATIONS: 1. Discharge diet: Cardiac. 2. Activity limited until follow-up. 3. Follow up with Dr. Dill. 4. Follow-up with Dr. Campos 2 to 3 days. 5. Medications are Xanax 0.5 p.o. t.i.d. p.r.n. 6. Aspirin 81 mg p.o. daily. 7. Symbicort 150/4.5 2 puffs b.i.d. 8. Calcium with vitamin D one p.o. b.i.d. 9. Albuterol/Atrovent updrafts q.i.d. and p.r.n. 10. Levaquin 500 mg p.o. daily for 5 days. 11. Megace 40 mg p.o. daily. 12. Multivitamins one p.o. daily. 13. Aleve 220 mg p.o. daily. 14. Habitrol 14 daily. 15. Mucinex 20 milligrams p.o. daily. 16. Prednisone taper 40 mg daily for 3 days, 30 for 3 days, 20 for 3 days, 10 for 3 days and the stop. MTDD
== END 2016-05-01 16:52 | disposition home or self-care (01) | DRG 190 ==
LOC: EC 09:56 → 5MS5E 13:03
PROVIDERS: ADMIT Hospitalist; ATTEND Hospitalist
DX: J44.0 Chronic obstructive pulmonary disease with (acute) lower respiratory infection (principal); E43 Unspecified severe protein-calorie malnutrition; J96.11 Chronic respiratory failure with hypoxia; Z68.1 Body mass index [BMI] 19.9 or less, adult; J44.1 Chronic obstructive pulmonary disease with (acute) exacerbation; J20.9 Acute bronchitis, unspecified; Z99.81 Dependence on supplemental oxygen; T38.0X5A Adverse effect of glucocorticoids and synthetic analogues, initial encounter; R73.9 Hyperglycemia, unspecified; Z87.891 Personal history of nicotine dependence; Z86.59 Personal history of other mental and behavioral disorders; Z86.718 Personal history of other venous thrombosis and embolism; Z79.82 Long term (current) use of aspirin; Z79.1 Long term (current) use of non-steroidal anti-inflammatories (NSAID); Z79.899 Other long term (current) drug therapy
CPT/HCPCS: 36415; 71020; 80048; 80053; 82550; 82553; 83036; 83735; 84484; 85025; 85610; 85730; 93005; 94640; 94760; 99285

== ENCOUNTER → 2016-06-07 | Outpatient (CLI) | payer MEDICARE ==
--- NOTE | 2016-06-07 15:31 | BD ---
EXAMINATION TYPE: MG DEXA axial skeleton. DATE OF EXAM: 06/07/2016 9:26 CLINICAL HISTORY: 66-year-old female postmenopausal without HRT Height: 60.50 Weight: 97 pounds FRAX RISK QUESTIONS: Alcohol (3 or more units per day): no Family History (Parent hip fracture): no Glucocorticoids (More than 3mos): no (Ex: prednisone, prednisolone, methylprednisolone, dexamethasone, and hydrocortisone). History of Fracture in Adulthood: yes Secondary Osteoporosis: 1. Type 1 Diabetes: no 2. Hyperthyroidism: no 3. Menopause before 45: no 4. Malnutrition: no 5. Chronic liver disease: no Rheumatoid Arthritis: yes, years ago was told ankle displayed Current Tobacco Use: not now RISK FACTORS HISTORY OF: History of Wrist Fracture: yes When: in late 90s Family History of Osteoporosis: yes, sister Drink Alcohol: rarely Active: yes Diet low in dairy products/other sources of calcium: no Postmenopausal woman: yes Take estrogen and/or progesterone medications: no Lost more than 2 inches in height since high school: no Frequent falls: no Poor Health: no Hyperparathyroidism: no Adrenal Insufficiency: no MEDICATIONS: Prednisone or other steroids: no Thyroid Medications: no Osteoporosis Medications: no EXAM MEASUREMENTS: Bone mineral densitometry was performed using the [email or web address] System. Bone mineral density as measured about the Lumbar spine is: ----- L1-L4(G/cm2): 0.767 T Score Values are as follows: ----- L2: -4.1 ----- L3: -3.2 ----- L4: -2.7 ----- L1-L4: -3.4 Bone mineral density has: Decreased -13.9% since study of: 10/02/2006 Bone mineral density about the R hip (g/cm2): 0.551 Bone mineral density about the L hip (g/cm2): 0.601 T Score values are as follows: -----R Neck: -3.5 -----L Neck: -3.1 -----R Intertrochanter: -3.6 -----L Intertrochanter: -3.8 Bone mineral density has: Decreased -24.1% since study of: 10/02/2006 IMPRESSION: Osteoporosis as indicated by T score values in the lumbar spine and both hips. There is increased fracture risk and therapy is usually indicated based on age. Re-Screen 1-2 years. NOTE: T-SCORE=SD OF THE YOUNG ADULT MEAN.
--- NOTE | 2016-06-08 11:43 | MM ---
Reason for exam: screening (asymptomatic). Last mammogram was performed 8 years and 1 month ago. History: Patient is postmenopausal and had first child at age 33. Family history of breast cancer in sister at age 55. Physical Findings: A clinical breast exam by your physician is recommended on an annual basis and results should be correlated with mammographic findings. MG 3D Screening Mammo W/Cad Bilateral CC and MLO view(s) were taken. Prior study comparison: May 18, 2008, bilateral digital screening mammogram. October 02, 2006, bilateral screening mammogram w/CAD. The breast tissue is heterogeneously dense. This may lower the sensitivity of mammography. Finding: There are dystrophic calcifications in the upper quadrant, posterior position of the right breast. There is no discrete abnormality. ASSESSMENT: Benign, BI-RAD 2 RECOMMENDATION: Routine screening mammogram of both breasts in 1 year.
== END | disposition home or self-care (01) ==
LOC: RADMAMWWP 09:23
PROVIDERS: ATTEND Family Medicine
DX: Z12.31 Encounter for screening mammogram for malignant neoplasm of breast (principal); M81.0 Age-related osteoporosis without current pathological fracture; Z78.0 Asymptomatic menopausal state
CPT/HCPCS: 77080; 77063; G0202

== ENCOUNTER 2018-10-20 09:21 | Emergency (ER) | payer MEDICARE ==
[2018-10-20 09:31] VITALS: TEMP 97.6
[2018-10-20] MEDS ORDERED: ONDANSETRON 4 MG/2 ML VIAL IVP STA (10:18)
[2018-10-20] MEDS ORDERED: SODIUM CHLORIDE 0.9% 1,000 ML IV STA (10:18)
[2018-10-20] MEDS ORDERED: KETOROLAC 30 MG/ML 1 ML VIAL IVP STA (10:18)
--- NOTE | 2018-10-20 10:25 | ED ---
Headache HPI - General Chief Complaint: Headache Stated Complaint: migraine x 4 days Time Seen by Provider: 10/20/18 10:03 Mode of arrival: wheelchair Limitations: no limitations - History of Present Illness Initial Comments: Patient is a 68-year-old female presenting to the emergency Department with complaints of a migraine x 4 days. Patient states she has a history of migrai sol but they typically don't last this long. Patient states she has tried Excedrin for migraine and Motrin without improvement. Patient also admits to nausea, vomiting, photophobia. Patient denies any changes in vision, weakness in arms or legs, cough, shortness of breath, chest pain, or falls. Patient has no other complaints at this time. - Related Data Home Medications Medication Instructions Recorded Confirmed Naproxen Sodium [Aleve] 440 mg PO DAILY 04/28/16 04/28/16 Albuterol Inhaler [Ventolin Hfa 1 - 2 puff INHALATION RT-Q6H PRN 10/20/18 10/20/18 Inhaler] Alendronate Sodium [Fosamax] 70 mg PO Q7D 10/20/18 10/20/18 Aspirin/Acetaminophen/Caffeine 1 tab PO Q12H PRN 10/20/18 10/20/18 [Excedrin Migraine Caplet] Budesonide [Pulmicort Flexhaler] 2 puff INHALATION RT-BID 10/20/18 10/20/18 Calcium Carbonate [Calcium] 600 mg PO DAILY 10/20/18 10/20/18 Multivitamins, Thera [Multivitamin 1 tab PO DAILY@1200 10/20/18 (formulary)] Allergies Allergy/AdvReac Type Severity Reaction Status Date / Time No Known Allergies Allergy Verified 10/20/18 10:04 Review of Systems ROS Statement: Those systems with pertinent positive or pertinent negative responses have been documented in the HPI. ROS Other: All systems not noted in ROS Statement are negative. Past Medical History Past Medical History: COPD, Deep Vein Thrombosis (DVT) Additional Past Medical History / Comment(s): DVT R leg History of Any Multi-Drug Resistant Organisms: None Reported Past Surgical History: No Surgical Hx Reported Additional Past Surgical History / Comment(s): colonoscopy-normal, D&C Past Anesthesia/Blood Transfusion Reactions: No Reported Reaction Past Psychological History: Depression Smoking Status: Current every day smoker Past Alcohol Use History: None Reported Past Drug Use History: None Reported - Past Family History Father Family Medical History: Myocardial Infarction (SC) Additional Family Medical History / Comment(s): Father of a SC at the age of 54yrs. He also had cardiac valve disease and tuberculosis. Mother Family Medical History: No Reported History Additional Family Medical History / Comment(s): Mother was healthy and lived to be 93 yrs old. General Exam - General Exam Comments Initial Comments: GENERAL: Well-appearing, well-nourished and in no acute distress, although appears uncomfortable. HEAD: Atraumatic, normocephalic. EYES: Pupils equal round and reactive to light, extraocular movements intact, sclera anicteric, conjunctiva are normal. ENT: TMs normal, nares patent, oropharynx clear without exudates. Moist mucous membranes. NECK: Normal range of motion, supple without lymphadenopathy or JVD. LUNGS: Breath sounds clear to auscultation bilaterally and equal. No wheezes rales or rhonchi. HEART: Regular rate and rhythm without murmurs, rubs or gallops. ABDOMEN: Soft, nontender, normoactive bowel sounds. No guarding, no rebound. No masses appreciated. : Deferred EXTREMITIES: Normal range of motion, no pitting or edema. No clubbing or cyanosis. 4/5 strength equal and bilateral upper and lower extremities. NEUROLOGICAL: Cranial nerves II through XII grossly intact. Normal speech, normal gait. Sensation equal and bilateral. PSYCH: Normal mood, normal affect. SKIN: Warm, Dry, normal turgor, no rashes or lesions noted. Limitations: no limitations Course Vital Signs 10/20/18 10/20/18 09:27 13:40 Temperature 97.6 F Pulse Rate 72 78 Respiratory 18 16 Rate Blood Pressure 153/84 150/74 O2 Sat by Pulse 95 98 Oximetry Medical Decision Making - Medical Decision Making Patient is 68-year-old female with complaints of a migraine 4 days. Patient has history of migraines states he never lasted this long. Patient also admits to associated nausea and vomiting. Patient is exam is normal including neuro exam. CBC, CMP, UA are not impressive. Patient reports improvement with fluids, Toradol, Zofran. Case discussed with Dr. Joyce. Patient will be discharged home. Patient is okay with this plan. Return parameters were discussed. - Lab Data Result diagrams: 10/20/18 10:32 10/20/18 10:32 Lab Results 10/20/18 10/20/18 10/20/18 Range/Units 10:32 10:32 13:45 WBC 6.4 (3.8-10.6) k/uL RBC 4.15 (3.80-5.40) m/uL Hgb 12.4 (11.4-16.0) gm/dL Hct 38.2 (34.0-46.0) % MCV 92.2 (80.0-100.0) fL MCH 30.0 (25.0-35.0) pg MCHC 32.5 (31.0-37.0) g/dL RDW 13.2 (11.5-15.5) % Plt Count 407 (150-450) k/uL Neutrophils % 79 % Lymphocytes % 15 % Monocytes % 4 % Eosinophils % 0 % Basophils % 0 % Neutrophils # 5.1 (1.3-7.7) k/uL Lymphocytes # 1.0 (1.0-4.8) k/uL Monocytes # 0.2 (0-1.0) k/uL Eosinophils # 0.0 (0-0.7) k/uL Basophils # 0.0 (0-0.2) k/uL Sodium 136 L (137-145) mmol/L Potassium 4.1 (3.5-5.1) mmol/L Chloride 102 (98-107) mmol/L Carbon Dioxide 24 (22-30) mmol/L Anion Gap 10 mmol/L BUN 19 H (7-17) mg/dL Creatinine 0.97 (0.52-1.04) mg/dL Est GFR (CKD-EPI)AfAm 70 (>60 ml/min/1.73 sqM) Est GFR (CKD-EPI)NonAf 61 (>60 ml/min/1.73 sqM) Glucose 86 (74-99) mg/dL Calcium 9.2 (8.4-10.2) mg/dL Total Bilirubin 0.4 (0.2-1.3) mg/dL AST 38 H (14-36) U/L ALT 25 (9-52) U/L Alkaline Phosphatase 62 (38-126) U/L Total Protein 6.7 (6.3-8.2) g/dL Albumin 4.2 (3.5-5.0) g/dL Urine Color Yellow Urine Appearance Clear (Clear) Urine pH 5.5 (5.0-8.0) Ur Specific [place] 1.017 (1.001-1.035) Urine Protein Negative (Negative) Urine Glucose (UA) Negative (Negative) Urine Ketones 2+ H (Negative) Urine Blood Negative (Negative) Urine Nitrite Negative (Negative) Urine Bilirubin Negative (Negative) Urine Urobilinogen <2.0 (<2.0) mg/dL Ur Leukocyte Esterase Negative (Negative) Disposition Clinical Impression: Migraine, Nausea & vomiting Disposition: HOME SELF-CARE Condition: Stable Instructions (If sedation given, give patient instructions): Acute Headache (ED) Additional Instructions: Please return to the Emergency Department if symptoms worsen or any other concerns. Is patient prescribed a controlled substance at d/c from ED?: No Referrals: Gloria Guo MD [Primary Care Provider] - 1-2 days
[2018-10-20 11:02] LABS: Albumin 4.2 g/dL (3.5-5.0); Calcium 9.2 mg/dL (8.4-10.2); Potassium 4.1 mmol/L (3.5-5.1); Total Bilirubin 0.4 mg/dL (0.2-1.3); Total Protein 6.7 g/dL (6.3-8.2)
[2018-10-20 11:13] LABS: Basophils % (A) 0 %; Eosinophils % (A) 0 %; HCT 38.2 % (34.0-46.0); HGB 12.4 gm/dL (11.4-16.0); Lymphocytes % (A) 15 %; MCHC 32.5 g/dL (31.0-37.0); MCV 92.2 fL (80.0-100.0); Mean Platelet Volume 6.5; Monocytes # (A) 0.2 k/uL (0-1.0); Monocytes % (A) 4 %; Neutrophils # (A) 5.1 k/uL (1.3-7.7); Neutrophils % (A) 79 %; Platelet Count 407 k/uL (150-450); RBC 4.15 m/uL (3.80-5.40); RDW 13.2 % (11.5-15.5); WBC 6.4 k/uL (3.8-10.6)
[2018-10-20] MEDS ORDERED: MORPHINE SULFATE 4 MG/ML SYRINGE IVP STA (11:25)
[2018-10-20] MEDS ORDERED: METOCLOPRAMIDE 5 MG/ML 2 ML VIAL IVP STA (11:55)
[2018-10-20 13:53] LABS: Appearance,Urine Clear (Clear); Bilirubin,Urine Negative (Negative); Blood,Urine Negative (Negative); Color,Urine Yellow; Glucose,Urine (UA) Negative (Negative); Ketones,Urine 2+ (Negative); Leukocyte Esterase,Urine Negative (Negative); Nitrite,Urine Negative (Negative); PH, Urine 5.5 (5.0-8.0); Protein,Urine Negative (Negative); Specific Gravity,Urine 1.017 (1.001-1.035); Urobilinogen,Urine <2.0 mg/dL (<2.0)
[2018-10-20 14:45] VITALS: BP 132/72; PULSE 73; RESP 18
== END 2018-10-20 14:43 | disposition home or self-care (01) ==
LOC: EC 09:21
DX: G43.909 Migraine, unspecified, not intractable, without status migrainosus (principal); J44.9 Chronic obstructive pulmonary disease, unspecified; F32.9 Major depressive disorder, single episode, unspecified; F17.200 Nicotine dependence, unspecified, uncomplicated; Z86.718 Personal history of other venous thrombosis and embolism; Z79.51 Long term (current) use of inhaled steroids; Z79.1 Long term (current) use of non-steroidal anti-inflammatories (NSAID); Z79.899 Other long term (current) drug therapy
CPT/HCPCS: 36415; 80053; 85025; 81003; 99283; 96374; 96375 ×3; 96361 ×2; J2270; J2765; J2405; J1885

== ENCOUNTER 2018-10-23 11:20 | Observation (INO) | payer MEDICARE ==
[2018-10-23] MEDS ORDERED: SODIUM CHLORIDE 0.9% 1,000 ML IV STA (12:38)
[2018-10-23] MEDS ORDERED: KETOROLAC 60 MG/2 ML VIAL IM STA (13:06)
[2018-10-23] MEDS ORDERED: ONDANSETRON 4 MG/2 ML VIAL IVP STA (13:06)
[2018-10-23] MEDS ORDERED: DIAZEPAM 5 MG/ML 2 ML INJ IVP STA (13:06)
--- NOTE | 2018-10-23 14:15 | CT ---
EXAMINATION TYPE: CT cervical spine wo con DATE OF EXAM: 10/23/2018 COMPARISON: None HISTORY: Migraine headaches for [address] DLP: 179.7 mGycm CONTRAST: None CT of the cervical spine is performed in the axial plane at 2 mm thick sections. Reconstructed image s in the coronal, and sagittal plane are reviewed on the computer. No acute fractures are evident. Vertebral body alignment is normal. C5-6 disc spaces loss of disc height. Some left foraminal narrowing at C5-6 due to uncovertebral join t hypertrophy is present. Vertebral body heights are preserved. No spinal canal stenosis is evident No neural foraminal stenosis is evident. IMPRESSIONS: 1. Generative disc changes C5-6 mild left foraminal narrowing.
[2018-10-23 16:44] LABS: HCT 34.7 % (34.0-46.0); HGB 11.6 gm/dL (11.4-16.0); MCH 30.7 pg (25.0-35.0); MCHC 33.3 g/dL (31.0-37.0); Mean Platelet Volume 7.2; Platelet Count 362 k/uL (150-450); RBC 3.77 m/uL (3.80-5.40); RDW 14.5 % (11.5-15.5); WBC 7.4 k/uL (3.8-10.6)
[2018-10-23 17:01] LABS: African American GFR (CKD) >90 (>60 ml/min/1.73 sqM); Anion Gap 6 mmol/L; Blood Urea Nitrogen 14 mg/dL (7-17); C Reactive Protein <5.0 mg/L (<10.0); Calcium 8.3 mg/dL (8.4-10.2); Carbon Dioxide 26 mmol/L (22-30); Chloride 104 mmol/L (98-107); Glucose 100 mg/dL (74-99); Magnesium 2.1 mg/dL (1.6-2.3); Potassium 3.9 mmol/L (3.5-5.1); Sodium 136 mmol/L (137-145)
[2018-10-23] MEDS ORDERED: NALOXONE 0.4 MG/ML 1 ML VIAL IV PRN (17:43)
--- NOTE | 2018-10-23 17:51 | ED ---
General Adult HPI - General Chief complaint: Headache Stated complaint: headache, nausea Time Seen by Provider: 10/23/18 12:00 Source: patient Mode of arrival: wheelchair Limitations: no limitations - History of Present Illness Initial comments: Patient is 68-year-old who presents to the emergency Department with headache x7 days. Patient reports she developed a headache in the occipital lobe that has not been resolving. Patient states she came to the emergency department on Sunday and was discharged after headache was under control. Patient reports she return to emergency department on Sunday for the same reason. Patient reports that upon discharge she felt much better and was ready go home. Patient reports that the following day the symptoms returned with no resolution. Patient decided to come in today for an unresolved headache. Patient reports nausea and vomiting. Patient reports a tempting to use ice compresses and the occipital region with minimal improvement. Patient reports taking [id number] medication with minimal improvement. Patient does report a history of migraines but nothing recently. Patient does report a sensitivity. Patient denies fever, blurry vision, chest pain, chest tightness or shortness of breath. - Related Data Home Medications Medication Instructions Recorded Confirmed Naproxen Sodium [Aleve] 440 mg PO DAILY PRN 04/28/16 10/23/18 Albuterol Inhaler [Ventolin Hfa 1 - 2 puff INHALATION RT-Q6H PRN 10/20/18 10/23/18 Inhaler] Alendronate Sodium [Fosamax] 70 mg PO SA 10/20/18 10/23/18 Budesonide [Pulmicort Flexhaler] 2 puff INHALATION RT-BID 10/20/18 10/23/18 Calcium Carbonate [Calcium] 600 mg PO DAILY 10/20/18 10/23/18 Aspirin EC [Ecotrin Low Dose] 81 mg PO DAILY PRN 10/23/18 10/23/18 Allergies Allergy/AdvReac Type Severity Reaction Status Date / Time No Known Allergies Allergy Verified 10/23/18 12:28 Review of Systems ROS Statement: Those systems with pertinent positive or pertinent negative responses have been documented in the HPI. ROS Other: All systems not noted in ROS Statement are negative. Past Medical History Past Medical History: COPD, Deep Vein Thrombosis (DVT) Additional Past Medical History / Comment(s): DVT R leg History of Any Multi-Drug Resistant Organisms: None Reported Past Surgical History: No Surgical Hx Reported Additional Past Surgical History / Comment(s): colonoscopy-normal, D&C Past Anesthesia/Blood Transfusion Reactions: No Reported Reaction Past Psychological History: Depression Smoking Status: Current every day smoker Past Alcohol Use History: None Reported Past Drug Use History: None Reported - Past Family History Father Family Medical History: Myocardial Infarction (NH) Additional Family Medical History / Comment(s): Father of a NH at the age of 54yrs. He also had cardiac valve disease and tuberculosis. Mother Family Medical History: No Reported History Additional Family Medical History / Comment(s): Mother was healthy and lived to be 93 yrs old. General Exam Limitations: no limitations General appearance: alert, in no apparent distress Head exam: Present: atraumatic, normocephalic, normal inspection, other (Tenderness in the occipital lobe is not exacerbated with palpation.) Eye exam: Present: normal appearance, PERRL, EOMI Pupils: Present: normal accommodation ENT exam: Present: normal exam, mucous membranes moist Neck exam: Present: normal inspection, full ROM. Absent: tenderness (No tenderness with palpation), lymphadenopathy Respiratory exam: Present: normal lung sounds bilaterally Cardiovascular Exam: Present: regular rate, normal rhythm, normal heart sounds Extremities exam: Present: normal inspection, full ROM Back exam: Present: normal inspection, full ROM Neurological exam: Present: alert, oriented X3 Psychiatric exam: Present: normal affect, normal mood Skin exam: Present: warm, intact, normal color Course Vital Signs 10/23/18 10/23/18 10/23/18 11:30 13:17 13:20 Temperature 98.2 F Pulse Rate 91 59 L Respiratory 16 18 Rate Blood Pressure 133/66 144/84 O2 Sat by Pulse 96 98 100 Oximetry 10/23/18 10/23/18 10/23/18 13:30 14:00 14:30 Temperature Pulse Rate 58 L 61 63 Respiratory 18 20 18 Rate Blood Pressure 144/84 130/84 149/86 O2 Sat by Pulse 98 98 99 Oximetry 10/23/18 10/23/18 10/23/18 15:00 15:30 16:00 Temperature Pulse Rate 68 65 64 Respiratory 20 18 18 Rate Blood Pressure 144/80 145/82 144/82 O2 Sat by Pulse 100 100 100 Oximetry Medical Decision Making - Medical Decision Making Patient is 60-year-old male presents emergency Department with a headache for [address] of the cervical spine is suggestive of junk degenerative changes C5 and C6 with mild left foraminal narrowing. CT of the brain was obtained on her previous ER stay which was negative for acute pathologies. Patient was given Zofran, 1 L of fluids, Toradol and Valium. After administration issue was reevaluated and states that she feels better and the pain is almost completely gone. Patient was taken out of bed and walked states that she feels little dizzy but that is most likely due to the Valium. Patient states that she would like to be admitted because she is afraid of returning to the ED after the pain medication wear off. Patient will be admitted for inpatient management. Case was discussed with Dr. Farris who also examined the patient and is in agreement with the treatment plan. The admitting physician is Dr. Candelaria. - Lab Data Result diagrams: 10/23/18 16:30 10/23/18 16:30 Lab Results 10/23/18 10/23/18 Range/Units 16:30 16:30 WBC 7.4 (3.8-10.6) k/uL RBC 3.77 L (3.80-5.40) m/uL Hgb 11.6 (11.4-16.0) gm/dL Hct 34.7 (34.0-46.0) % MCV 92.0 (80.0-100.0) fL MCH 30.7 (25.0-35.0) pg MCHC 33.3 (31.0-37.0) g/dL RDW 14.5 (11.5-15.5) % Plt Count 362 (150-450) k/uL ESR Cancelled Sodium 136 L (137-145) mmol/L Potassium 3.9 (3.5-5.1) mmol/L Chloride 104 (98-107) mmol/L Carbon Dioxide 26 (22-30) mmol/L Anion Gap 6 mmol/L BUN 14 (7-17) mg/dL Creatinine 0.64 (0.52-1.04) mg/dL Est GFR (CKD-EPI)AfAm >90 (>60 ml/min/1.73 sqM) Est GFR (CKD-EPI)NonAf >90 (>60 ml/min/1.73 sqM) Glucose 100 H (74-99) mg/dL Calcium 8.3 L (8.4-10.2) mg/dL Magnesium 2.1 (1.6-2.3) mg/dL C-Reactive Protein <5.0 (<10.0) mg/L Disposition Clinical Impression: Headache Disposition: ADMITTED IP TO THIS HOSP Condition: Stable Instructions (If sedation given, give patient instructions): Acute Headache (ED) Additional Instructions: Patient will be admitted for inpatient management. Is patient prescribed a controlled substance at d/c from ED?: No Referrals: Gloria Guo MD [Primary Care Provider] - 1-2 days Time of Disposition: 18:25
[2018-10-23] MEDS ORDERED: MORPHINE SULFATE 2 MG/ML SYRINGE IVP PRN (18:30)
[2018-10-23] MEDS ORDERED: BACLOFEN 10 MG TAB PO PRN (18:30)
[2018-10-23] MEDS ORDERED: IPRATROPIUM-ALBUTEROL 3 ML NEB INHALATION PRN (18:30)
--- NOTE | 2018-10-23 18:33 | P.HPIM ---
History of Present Illness H&P Date: 10/23/18 Chief Complaint: Headache 68-year-old female with PMH of COPD, osteoporosis, DVT in her 30s presents to the ED for headache. Patient has had multiple ED visits, 10/20/2018, 10/21/2018 for the same problem. Patient reports that her headache initially started last Sunday night. She describes her headache that starts at the base of the neck and radiates up to behind her left ear. Pain is constant when it is there. Pain is 10 out of 10 in severity. Patient describes the pain as throbbing in nature. Patient reports that the pain is aggravated with movement of her head and alleviated by laying flat. Patient associates the pain with nausea and dizziness. She does report migraines in the past but none as severe as the headache she is experiencing now. She has tried aspirin and Excedrin with minimal relief. She has undergone CT of the brain which shows no acute intracranial abnormality. CTA of the head and neck was negative for acute finding or aneurysm. CT of the neck shows degenerative disc disease at C5-C6 with left foraminal narrowing. Patient denies any stiff neck or photophobia. She denies any major stressors in her life. She denies any auras or abnormal smells. Patient denies any tearing of the eyes or rhinorrhea. She denies any lower extremity edema, fever or chills, cough, chest pain, shortness of breath, palpitations, changes in ur ination or bowel habits. No changes in appetite or weight. She denies any numbness/weakness/tingling of the extremities. In the ED, her vital signs were stable. CBC and CMP were unremarkable. CRP was negative. Patient is admitted under observation status for uncontrolled headaches, neurology to be consulted. Review of Systems Pertinent positives and negatives as discussed in HPI, a complete review of systems was performed and all other systems are negative. Past Medical History Past Medical History: COPD, Deep Vein Thrombosis (DVT) Additional Past Medical History / Comment(s): DVT R leg History of Any Multi-Drug Resistant Organisms: None Reported Past Surgical History: No Surgical Hx Reported Additional Past Surgical History / Comment(s): colonoscopy-normal, D&C Past Anesthesia/Blood Transfusion Reactions: No Reported Reaction Past Psychological History: Depression Smoking Status: Current every day smoker Past Alcohol Use History: None Reported Past Drug Use History: None Reported - Past Family History Father Family Medical History: Myocardial Infarction ([place]) Additional Family Medical History / Comment(s): Father of a [place] at the age of 54yrs. He also had cardiac valve disease and tuberculosis. Mother Family Medical History: No Reported History Additional Family Medical History / Comment(s): Mother was healthy and lived to be 93 yrs old. Medications and Allergies Home Medications Medication Instructions Recorded Confirmed Type RX: Naproxen Sodium [Aleve] 440 mg PO DAILY PRN 04/28/16 10/23/18 History Albuterol Inhaler [Ventolin Hfa 1 - 2 puff INHALATION RT-Q6H PRN 10/20/18 10/23/18 History Inhaler] Alendronate Sodium [Fosamax] 70 mg PO SA 10/20/18 10/23/18 History Budesonide [Pulmicort Flexhaler] 2 puff INHALATION RT-BID 10/20/18 10/23/18 History Calcium Carbonate [Calcium] 600 mg PO DAILY 10/20/18 10/23/18 History Aspirin EC [Ecotrin Low Dose] 81 mg PO DAILY PRN 10/23/18 10/23/18 History Allergies Allergy/AdvReac Type Severity Reaction Status Date / Time No Known Allergies Allergy Verified 10/23/18 12:28 Physical Exam Vitals: Vital Signs Temp Pulse Resp BP Pulse Ox 10/23/18 16:00 64 18 144/82 100 10/23/18 15:30 65 18 145/82 100 10/23/18 15:00 68 20 144/80 100 10/23/18 14:30 63 18 149/86 99 10/23/18 14:00 61 20 130/84 98 10/23/18 13:30 58 L 18 144/84 98 10/23/18 13:20 59 L 18 144/84 100 10/23/18 13:17 98 10/23/18 11:30 98.2 F 91 16 133/66 96 Intake and Output 10/23/18 10/23/18 10/23/18 06:59 14:59 22:59 Other: Weight 45.813 kg General: [non toxic], [no distress], [appears at stated age] Derm: [warm], [dry] Head: [atraumatic], [normocephalic], [symmetric] Eyes: [EOMI], [no lid lag], [anicteric sclera] Mouth: [no lip lesion], [mucus membranes moist] Cardiovascular: [S1S2 reg], [no murmur], [positive DP pulse bilateral] Lungs: [Decreased breath sounds bilateral], [no rhonchi, no rales] , [no accessory muscle use] Abdominal: [soft], [ nontender to palpation], [no guarding], [no appreciable organomegaly] Ext: [no gross muscle atrophy], [no edema], [no contractures] Neuro: [ CN II-XI grossly intact], [no focal neuro deficits], [full range of motion, aggravation of pain with hyperextension of the head] Psych: [Alert], [oriented], [appropriate affect] Results CBC & Chem 7: 10/23/18 16:30 10/23/18 16:30 Labs: Abnormal Lab Results - Last 24 Hours (Table) 10/23/18 10/23/18 Range/Units 16:30 16:30 RBC 3.77 L (3.80-5.40) m/uL Sodium 136 L (137-145) mmol/L Glucose 100 H (74-99) mg/dL Calcium 8.3 L (8.4-10.2) mg/dL Thrombosis Risk Factor Assmnt - Choose All That Apply Any of the Below Risk Factors Present?: Yes Each Factor Represents 1 point: Abnormal pulmonary function (COPD) Each Risk Factor Represents 2 Points: Age 61-74 years Thrombosis Risk Factor Assessment Total Risk Factor Score: 3 Thrombosis Risk Factor Assessment Level: Moderate Risk Assessment and Plan Assessment: Assessment and Plan Headache, possibly related to muscular strain. COPD. Osteoporosis. History of DVT. Appears like a muscular strain, possible sternocleidomastoid muscle. CT brain negative. CTA head and neck negative. CT of the neck shows degenerative disc changes at C5-C6 with mild left foraminal narrowing. Patient is afebrile with no leukocytosis, no concerns for meningitis. Does not sound like migraines. Plans: Start baclofen. Start diazepam as needed. Reglan for nausea and vomiting. Morphine as needed for severe pain. Will consult neurology for further recommendations. Plans: DuoNeb as needed for shortness of breath and wheezing. Takes alendronate weekly. Plans: Continue calcium carbonate. Previous DVT was induced, patient was on OCPs and she was a smoker at that time. Plans: DVT prophylaxis. Patient names her daughter Lita decision-maker in the case that she can't make decisions for herself. Patient reiterates that she wants to remain full code at this time. DVT prophylaxis: [Heparin] Discussed with: [Patient] Anticipated discharge: [Tomorrow] Anticipated discharge place: [Home] A total of [30] minutes was spent on the care of this complex patient more than 50% of the time was spent in counseling and care coordination.
--- NOTE | 2018-10-23 19:32 | P.CNNES ---
History of Present Illness Consult date: 10/23/18 Requesting physician: Dylan Candelaria Reason for Consult: head/neck pain Chief complaint: "The back of my head/neck has been hurting for 6-7 days" History of Present Illness: This is a 68 RH female who presents with 6-7 days of unrelenting left occipital and posterior cervical pain. Quality is pulling, throbbing and constant. Severity is 10/10. No alleviating factors. Exacerbating factors include head/neck movements. Meds tried include OTC ones including APAP, ibuprofen and Excedrin, none has helped. Some associated nausea, but no photosonophobia, neck stiffness, aura, prodrome, vertigo, decreased level or loss of consciousness, diplopia, amaurosis, facial numbness or droop, bulbar symptoms, focal numbness/weakness, tremors, bowel/bladder incontinence or ataxia. No cervical radicular S+S into shoulder or LUE. No Lhermitte's. Review of Systems 14-point ROS performed and as per HPI. Past Medical History Past Medical History: COPD, Deep Vein Thrombosis (DVT) Additional Past Medical History / Comment(s): DVT R leg History of Any Multi-Drug Resistant Organisms: None Reported Past Surgical History: No Surgical Hx Reported Additional Past Surgical History / Comment(s): colonoscopy-normal, D&C Past Anesthesia/Blood Transfusion Reactions: No Reported Reaction Past Psychological History: Depression Smoking Status: Current every day smoker Past Alcohol Use History: None Reported Past Drug Use History: None Reported - Past Family History Father Family Medical History: Myocardial Infarction ([place]) Additional Family Medical History / Comment(s): Father of a [place] at the age of 54yrs. He also had cardiac valve disease and tuberculosis. Mother Family Medical History: No Reported History Additional Family Medical History / Comment(s): Mother was healthy and lived to be 93 yrs old. Medications and Allergies Home Medications Medication Instructions Recorded Confirmed Type Naproxen Sodium [Aleve] 440 mg PO DAILY PRN 04/28/16 10/23/18 History Albuterol Inhaler [Ventolin Hfa 1 - 2 puff INHALATION RT-Q6H PRN 10/20/18 10/23/18 History Inhaler] Alendronate Sodium [Fosamax] 70 mg PO SA 10/20/18 10/23/18 History Budesonide [Pulmicort Flexhaler] 2 puff INHALATION RT-BID 10/20/18 10/23/18 H istory Calcium Carbonate [Calcium] 600 mg PO DAILY 10/20/18 10/23/18 History Aspirin EC [Ecotrin Low Dose] 81 mg PO DAILY PRN 10/23/18 10/23/18 History Allergies Allergy/AdvReac Type Severity Reaction Status Date / Time No Known Allergies Allergy Verified 10/23/18 12:28 Physical Examination - Vital Signs Vital Signs: Vital Signs Temp Pulse Pulse Resp BP BP Pulse Ox 10/23/18 18:54 98.2 F 59 L 16 165/85 96 10/23/18 16:00 64 18 144/82 100 10/23/18 15:30 65 18 145/82 100 10/23/18 15:00 68 20 144/80 100 10/23/18 14:30 63 18 149/86 99 10/23/18 14:00 61 20 130/84 98 10/23/18 13:30 58 L 18 144/84 98 10/23/18 13:20 59 L 18 144/84 100 10/23/18 13:17 98 10/23/18 11:30 98.2 F 91 16 133/66 96 Intake and Output 10/23/18 10/23/18 10/23/18 06:59 14:59 22:59 Other: Weight 45.813 kg Gen NAD Pleasant and cooperative HEENT NCAT Sclera without icterus O/P clear Neck Supple No carotid bruit Significant tenderness to palpation of the left trapezius/posterior cervical and suboccipital muscles No trigger points Cor RRR no m/r/g Lungs CTAB Abd Soft NTND +BS Ext Warm to touch No edema Neuro MS A+Ox4 Normal fluency Able to follow all commands CN PERRL VFF no APD EOMI no nystagmus or ISH No facial asymmetry [place]'s symmetric Hearing intact to normal voice bilaterally Speech not dysarthric Equal elevation of palate Tongue midline Sym shrug and SCM bilaterally Motor Normal bulk/tone No pronator or tremors Strength 5/5 sym throughout Sens Intact to LT x4 No neglect Coord No dysmetria on FTN bilaterally DTRs 2+/4 sym throughout Toes downgoing bilaterally No clonus at achilles Gait Deferred Results - Laboratory Findings CBC and BMP: 10/23/18 16:30 10/23/18 16:30 Abnormal Lab Findings: Abnormal Labs 10/23/18 10/23/18 16:30 16:30 RBC 3.77 L Sodium 136 L Glucose 100 H Calcium 8.3 L - Diagnostic Findings Additional findings: CT C-spine wo cont 10/23/18. DJD at C5-C6 with left neuroforaminal stenosis. CTA Head w cont 10/21/18. No LVO or stenosis. CT Head wo cont 10/21/18. Mild atrophy. Nil acute. I have reviewed all neuroimages myself. Assessment and Plan Assessment: Left cervical and occipital headache- suspect cervical strain. No clinical S+S to suggest active CASER infection, CVA, migraine or occipital neuralgia. r/o cervical radiculopathy. Plan: -MRI C-spine wo randy -Agree with primary team's management with muscle relaxants including baclofen and diazepam along with antiemetics. -Patient asks for pain meds. I do not do opiate management. Will need to defer to primary team/pain management. -Will follow up MRI when available. -d/w patient and family at bedside. All questions answered. Thank you for this consultation. Please call with ?. Time with Patient: Greater than 30 (Time spent in direct patient care, greater than 50% of which was spent in [id number] counseling and coordination of care: 70 minutes.)
[2018-10-23] MEDS: HEPARIN SODIUM,PORCINE 5,000 UNIT/ML 1 ML VIAL SQ SCH (20:41)
[2018-10-23] MEDS: METOCLOPRAMIDE 5 MG/ML 2 ML VIAL IVP PRN (21:16)
[2018-10-23] MEDS: DIAZEPAM 5 MG/ML 2 ML INJ IVP PRN (21:23)
[2018-10-24 04:20] LABS: Iron Saturation 15.58 (12.00-45.00)
[2018-10-24 07:57] VITALS: RESP 18
[2018-10-24] MEDS ORDERED: CALCIUM CARBONATE 500 MG CHEWABLE PO SCH (09:00)
[2018-10-24] MEDS: HEPARIN SODIUM,PORCINE 5,000 UNIT/ML 1 ML VIAL SQ SCH (09:25)
[2018-10-24] MEDS: BUTALB/APAP/CAFF 50-325-40MG TAB PO PRN ×2 (12:05→20:09)
[2018-10-24] MEDS: METOCLOPRAMIDE 5 MG/ML 2 ML VIAL IVP PRN (12:05)
[2018-10-24] MEDS: DIAZEPAM 5 MG/ML 2 ML INJ IVP PRN (14:09)
[2018-10-24 15:58] VITALS: BP 136/85; PULSE 66; TEMP 98.1
--- NOTE | 2018-10-24 16:26 | P.PN ---
Subjective Progress Note Date: 10/24/18 Principal diagnosis: Headache Cervicalgia Pain a bit better but not gone. MRI C-spine. No new neuro c/o. Objective - Vital Signs Vital signs: Vital Signs Temp 98.1 F 10/24/18 15:58 Pulse 66 10/24/18 15:58 Resp 18 10/24/18 15:58 BP 136/85 10/24/18 15:58 Pulse Ox 96 10/24/18 15:58 Intake & Output 10/23/18 10/24/18 10/24/18 18:59 06:59 18:59 Intake Total 100 200 Balance 100 200 Weight 45.813 kg Intake: Oral 100 Other 200 Other: # Voids 1 - Exam Gen NAD Pleasant and cooperative Neck Palpation of left paravertebral spinal muscles MS A+Ox4 Normal speech CN II-XII grossly intact no nystagmus Motor Normal bulk/tone No tremors Strength 5/5 sym throughout Sens Intact to LT x4 No Lhermitte's Coord Not tested DTRs 2+/4 sym throughout Gait Deferred - Labs CBC & Chem 7: 10/23/18 16:30 10/23/18 16:30 Labs: Abnormal Lab Results - Last 24 Hours (Table) 10/23/18 10/23/18 10/23/18 Range/Units 16:30 16:30 16:30 RBC 3.77 L (3.80-5.40) m/uL Sodium 136 L (137-145) mmol/L Glucose 100 H (74-99) mg/dL Calcium 8.3 L (8.4-10.2) mg/dL Iron 48 L (50-170) ug/dL - Imaging and Cardiology MRI C-spine wo randy 10/24/18 left C5-C6 neuroforaminal stenosis no cord compression. Assessment and Plan Assessment: Left cervical and occipital headache- suspect cervical strain. 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 r/o cervical radiculopathy. Plan: -MRI C-spine wo randy reviewed with patient. -The only remarkable finding of left C5-C6 stenosis would have given her a C6 radiculopathy, which clinically the patient does not have and would not explain her current clinical symptoms. -Clinical impression is still cervical/suboccipital muscle strain. -Conservative/Pain management per primary team. -May benefit from outpatient physiatry consultation. -Follow up with PCP as well. -d/w patient at bedside. All questions answered. Thank you again for this consultation. Please call with ?. Time with Patient: Less than 30 (Time spent in direct patient care, greater than 50% of which was spent in [id number] counseling and coordination of care: 25 m inutes.)
[2018-10-24] MEDS ORDERED: DIAZEPAM 5 MG/ML 2 ML INJ IVP PRN (17:19)
--- NOTE | 2018-10-24 17:33 | MR ---
EXAMINATION TYPE: MR cervical spine wo con DATE OF EXAM: 10/24/2018 COMPARISON: Today HISTORY: stenosis, pain TECHNIQUE: Multiplanar, multisequence images of the cervical spine were acquired. Cervical vertebra have normal alignment. Disc spaces are fairly well-maintained except for some mild narrowing at C5-6. There is small posterior disc herniation at C5-6 on the left side. There is mild n eural foraminal impingement. Cervical spinal cord has normal signal pattern without evidence of edema . Brainstem is intact. There is no spinal stenosis. There is no cervical paraspinal mass. There is sm all posterior disc bulge at C4-5. There is multilevel mild hypertrophic cervical facet arthropathy. IMPRESSION: There is some degenerative disc change at C5-6 with left side small disc herniation. No spinal stenos is. Mild left side C5-6 neural foraminal impingement.
--- NOTE | 2018-10-27 10:29 | P.DS ---
Providers Date of admission: 10/23/18 16:12 Expected date of discharge: 10/27/18 Attending physician: Dylan Candelaria MD Consults: 10/23/18 18:31 Consult Physician Routine Consulting Provider: [facility] Consult Reason/Comments: Occipital headache Do you want consulting provider notified?: Yes Primary care physician: Gloria Guo MD Hospital Course: Discharge diagnoses Left Cervical occipital muscle strain Left cervical occipital headache Cervical degenerative disc disease at C5-C6 with cervical radiculopathy COPD without acute exacerbation Osteoporosis History of DVT Hospital course The patient is a 68-year-old female that presented and was admitted with intractable headache and neck pain and was started on analgesic regimen with baclofen and diazepam and morphine, workup with a CT A of the head and neck showed degenerative disc changes from C5 to C6 with mild left femoral narrowing. Neurology was consulted and MRI of the cervical spine did confirm some degenerative disc changes at C5-C6 with left-sided mild disc herniation and mild left-sided C5 to C6 neural foraminal impingement. The patient's pain regimen was changed to naproxen 500 mg BID, Fioricet 50/325/40 2 tab TID prn and Flexeril 5 mg by mouth daily at bedtime with home health physical therapy and instructed to follow-up with her PCP. She was discharged home in stable condition this discharge process took approximately 30 minutes. Focused exam HEENT: Left cervical spasms, negative for meningismus Patient Condition at Discharge: Stable Plan - Discharge Summary Discharge Rx Participant: No New Discharge Prescriptions: New Naproxen [EC-Naprosyn] 500 mg PO AC-BID #30 tablet.dr [place]/APAP/Caff 50-325-40Mg [Fioricet 50-325-40] 2 each PO Q8HR PRN #60 tab PRN Reason: Headache Cyclobenzaprine [Flexeril] 5 mg PO HS #14 tab Continue Calcium Carbonate [Calcium] 600 mg PO DAILY Albuterol Inhaler [Ventolin Hfa Inhaler] 1 - 2 puff INHALATION RT-Q6H PRN PRN Reason: Shortness Of Breath Budesonide [Pulmicort Flexhaler] 2 puff INHALATION RT-BID Alendronate Sodium [Fosamax] 70 mg PO SA Aspirin EC [Ecotrin Low Dose] 81 mg PO DAILY PRN PRN Reason: Pain Discontinued Naproxen Sodium [Aleve] 440 mg PO DAILY PRN PRN Reason: Migraine Headache Discharge Medication List Albuterol Inhaler [Ventolin Hfa Inhaler] 1 - 2 puff INHALATION RT-Q6H PRN 10/20/18 [History] Alendronate Sodium [Fosamax] 70 mg PO SA 10/20/18 [History] Budesonide [Pulmicort Flexhaler] 2 puff INHALATION RT-BID 10/20/18 [History] Calcium Carbonate [Calcium] 600 mg PO DAILY 10/20/18 [History] Aspirin EC [Ecotrin Low Dose] 81 mg PO DAILY PRN 10/23/18 [History] Butalb/APAP/Caff 50-325-40Mg [Fioricet 50-325-40] 2 each PO Q8HR PRN #60 tab 10/24/18 [Rx] Cyclobenzaprine [Flexeril] 5 mg PO HS #14 tab 10/24/18 [Rx] Naproxen [EC-Naprosyn] 500 mg PO AC-BID #30 tablet. 10/24/18 [Rx] Follow up Appointment(s)/Referral(s): Gloria Guo MD [Primary Care Provider] - 1-2 days Patient Instructions/Handouts: Acute Headache (ED) Activity/Diet/Wound Care/Special Instructions: Patient will be admitted for inpatient management. Discharge Disposition: HOME SELF-CARE
== END 2018-10-24 20:56 | disposition home or self-care (01) ==
LOC: EC 11:20 → 1SOBS 16:12
PROVIDERS: ADMIT Family Medicine; ATTEND Family Medicine
DX: S16.1XXA Strain of muscle, fascia and tendon at neck level, initial encounter (principal); R51 Headache; R42 Dizziness and giddiness; R11.2 Nausea with vomiting, unspecified; M50.122 Cervical disc disorder at C5-C6 level with radiculopathy; J44.9 Chronic obstructive pulmonary disease, unspecified; M81.0 Age-related osteoporosis without current pathological fracture; G43.909 Migraine, unspecified, not intractable, without status migrainosus; F32.9 Major depressive disorder, single episode, unspecified; F17.200 Nicotine dependence, unspecified, uncomplicated; Z86.718 Personal history of other venous thrombosis and embolism; Z79.82 Long term (current) use of aspirin; Z79.83 Long term (current) use of bisphosphonates; Z79.1 Long term (current) use of non-steroidal anti-inflammatories (NSAID); Z82.49 Family history of ischemic heart disease and other diseases of the circulatory system
CPT/HCPCS: 96372 ×3; 96375 ×2; 96376 ×2; 96361; 96374; 99285; 36415; 80048; 85652; 82728; 83540; 83550; 83735; 85027; 86140; 72125; 72141; G0378 ×2; J1644 ×2; J2765 ×2; J3360 ×2; J2405; J1885; J2270

== ENCOUNTER 2019-02-26 08:35 | Day surgery (SDC) | payer MEDICARE ==
[~2019-02-26 08:35] MED LIST: DEXAMETHASONE SOD PHOSPHATE 10 MG/ML 1 ML VIAL IV ONE; HEPARIN SODIUM,PORCINE 5,000 UNIT/ML 1 ML VIAL SQ ONE; ONDANSETRON 4 MG/2 ML VIAL IVP ONE; SCOPOLAMINE 1.5MG/72HR PATCH TRANSDERM ONE
[2019-02-26] MEDS: LACTATED RINGERS 1,000 ML IV SCH ×3 (09:10→11:38)
[2019-02-26] MEDS: LIDOCAINE 1% 20 ML VIAL (10MG/ML) FOR IV START INTRADERMA PRN ×2 (09:10→09:11)
[2019-02-26] MEDS ORDERED: MIDAZOLAM 2 MG/2 ML VIAL IVP ONE (11:11)
[2019-02-26] MEDS ORDERED: fentaNYL (PF) 50 MCG/ML 2 ML AMP IVP ONE (11:11)
--- NOTE | 2019-02-26 11:19 | P.GSHP ---
History of Present Illness H&P Date: 02/26/19 Chief Complaint: left inguinal hernia This is a 60-year-old female who presents today for laparoscopic robotic- assisted repair of left inguinal hernia. Patient is developed a tender left groin mass Past Medical History Past Medical History: COPD, Deep Vein Thrombosis (DVT) Additional Past Medical History / Comment(s): DVT R leg-1970s History of Any Multi-Drug Resistant Organisms: None Reported Past Surgical History: No Surgical Hx Reported Additional Past Surgical History / Comment(s): colonoscopy-normal, D&C Past Anesthesia/Blood Transfusion Reactions: No Reported Reaction Past Psychological History: Depression Additional Psychological History / Comment(s): Pt resides alone. She has a cat. She uses no assistive devices. She drives. Smoking Status: Former smoker Past Alcohol Use History: None Reported Additional Past Alcohol Use History / Comment(s): Pt states she started smoking at the age of 18 or 19 and has stopped in the last 6 months Past Drug Use History: None Reported - Past Family History Father Family Medical History: Myocardial Infarction ([place]) Additional Family Medical History / Comment(s): Father of a [place] at the age of 54yrs. He also had cardiac valve disease and tuberculosis. Mother Family Medical History: No Reported History Additional Family Medical History / Comment(s): Mother was healthy and lived to be 93 yrs old. Medications and Allergies Home Medications Medication Instructions Recorded Confirmed Type Albuterol Inhaler [Ventolin Hfa 1 - 2 puff INHALATION RT-Q6H PRN 10/20/18 02/26/19 History Inhaler] Budesonide [Pulmicort Flexhaler] 2 puff INHALATION RT-BID 10/20/18 02/26/19 History Calcium Carbonate [Calcium] 600 mg PO DAILY 10/20/18 02/26/19 History Allergies Allergy/AdvReac Type Severity Reaction Status Date / Time No Known Allergies Allergy Verified 02/26/19 09:03 Surgical - Exam Vital Signs Temp Pulse Resp BP Pulse Ox 97.3 F L 68 18 149/76 99 02/26/19 09:00 02/26/19 09:00 02/26/19 09:00 02/26/19 09:00 02/26/19 09:00 - General well developed, well nourished, no distress - Eyes PERRL - ENT normal pinna - Neck no masses - Respiratory normal expansion - Cardiovascular Rhythm: regular - Abdomen Abdomen: soft, non tender Hernia: inguinal (left inguinal), reducible Assessment and Plan Assessment: Left inguinal hernia. We'll perform laparoscopic robotic-assisted repair.
[2019-02-26] MEDS ORDERED: LIDOCAINE 1% INJ 10MG/ML (20 ML MDV) ONE (11:49)
[2019-02-26] MEDS ORDERED: fentaNYL (PF) 50 MCG/ML 2 ML AMP ONE (11:49)
[2019-02-26] MEDS ORDERED: ROPIVACAINE 5 MG/ML 30 ML VIAL ONE (11:49)
[2019-02-26] MEDS ORDERED: NEOSTIGMINE 1 MG/ML 10 ML VIAL ONE (11:49)
[2019-02-26] MEDS ORDERED: LIDOCAINE 1%-EPI 1:100,000 20 ML VIAL ONE (11:49)
[2019-02-26] MEDS ORDERED: ROCURONIUM BROMIDE 10 MG/ML 10 ML VIAL IV ONE (11:49)
[2019-02-26] MEDS ORDERED: GLYCOPYRROLATE 0.2 MG/ML 2 ML VIAL ONE (11:49)
[2019-02-26] MEDS ORDERED: KETOROLAC 30 MG/ML 1 ML VIAL ONE (11:49)
[2019-02-26] MEDS ORDERED: SUCCINYLCHOLINE CHLORIDE 100 MG/5 ML SYR IV ONE (11:49)
[2019-02-26] MEDS ORDERED: PROPOFOL 10 MG/ML 20 ML VIAL IV ONE (11:49)
[2019-02-26] MEDS ORDERED: BUPIVACAINE (PF) 0.25% 30 ML VIAL SQ ONE (12:10)
[2019-02-26 12:53] VITALS: RESP 16; TEMP 97.6
[2019-02-26] MEDS: HYDROmorphone 0.5 MG/0.5 ML SYRINGE IVP PRN ×2 (13:11→14:04)
--- NOTE | 2019-02-26 14:00 | P.OP ---
Date of Procedure: 02/26/19 Preoperative Diagnosis: Left inguinal hernia Postoperative Diagnosis: Bilateral inguinal hernia Procedure(s) Performed: Laparoscopic robotic-assisted repair of bilateral inguinal hernia Anesthesia: MONA Surgeon: Chandler Anderson Estimated Blood Loss (ml): 5 Pathology: none sent Condition: stable Disposition: PACU Description of Procedure: The patient's placed on the operating table in the supine position. The patient received general anesthesia. The patient's abdomen was prepped and draped in usual sterile fashion. The skin was anesthetized 1% local Xylocaine at the incision sites. Using an 11 blade a skin incision was made at the umbilicus. The fascia was grasped with a [place] and then the peritoneal cavity was entered with the Veress needle. Position of the Veress needle was confirmed with a positive drop test. After adequate insufflation a 5 mm trocar was placed into the peritoneal cavity. The Laparoscope was placed the peritoneal cavity. And a robotic 8 mm trocar was placed in the right lateral position and then another 8 mm robotic trochars placed in the left lateral position. The original 5 mm trocar was exchanged for a 12 mm trocar. The patient was placed in reverse Trendelenburg and then the patient was docked to the robot. Next the peritoneum over top of the right inguinal hernia was incised and then using blunt and sharp dissection and electrocautery the hernia sac was dissected free from the floor of the inguinal canal. The hernia sac was completely reduced into the peritoneal cavity. And then using the Pro skiver hand mesh the hernia was repaired. The peritoneum was then sutured with 20V lock suture. Next the peritoneum over top of the left inguinal hernia was incised and then using blunt and sharp dissection and electrocautery the hernia sac was dissected free from the floor of the inguinal canal. The hernia sac was completely reduced into the peritoneal cavity. And then using the Pro skiver hand mesh the hernia was repaired. The peritoneum was then sutured with 20V lock suture. The patient was then undocked the robot. The needle was withdrawn from the peritoneal cavity. The umbilical trocar site was closed with 0 Ethibond suture. The skin was closed interrupted 3-0 Monocryl suture. Dermabond dressing was applied. Patient was sent to recovery in stable condition.
[2019-02-26] MEDS ORDERED: HYDROcodone/APAP 5-325MG 1 EACH TAB PO ONE (14:46)
[2019-02-26 14:49] VITALS: BP 148/83; PULSE 85
--- NOTE | 2019-02-26 15:23 | P.ANPRN ---
Procedure Note - Anesthesia - Nerve Block Performed Left Transversus Abdominis Single Time Out Performed: Yes Date of Procedure: 02/04/19 Procedure Start Time: :10 Procedure Stop Time: 20 Location of Patient Procedure: PreOp Indication: Acute Post-Operative Pain, Requested by Surgeon Specifically requested for management of pain by DrMai: Chandler Anderson Sedation Type: Sedate with meaningful contact maintained Preparation: Sterile Prep Position: Supine Catheter: None Needle Types: Pajunk Needle Gauge: 20 Ultrasound used to visualize needle placement: Yes Ultrasound used to observe medication spread: Yes Injectate: Other (see comment) (Ropivacaine 0.25%/lidocaine 0.5% 25 mL) Adjunct: Epinephrine (see comment for dilution ratio) (1:200,000) Blood Aspirated: No Pain Paresthesia on Injection Noted: No Resistance on Injection: Normal Image Stored and Saved: Yes Events: Uneventful and Well Tolerated
--- NOTE | 2019-02-26 15:25 | P.ANPRN ---
Procedure Note - Anesthesia - Nerve Block Performed Right Transversus Abdominis Single Time Out Performed: Yes Date of Procedure: 02/26/19 Procedure Start Time: 12:23 Procedure Stop Time: 13:32 Location of Patient Procedure: PACU Indication: Acute Post-Operative Pain, Requested by Surgeon Specifically requested for management of pain by DrMai: Chandler Anderson Sedation Type: Sedate with meaningful contact maintained Preparation: Sterile Prep Position: Supine Catheter: None Needle Types: Pajunk Needle Gauge: 20 Ultrasound used to visualize needle placement: Yes Ultrasound used to observe medication spread: Yes Injectate: Other (see comment) (Ropivacaine 0.25%/lidocaine 0.5% 25 mL) Adjunct: Epinephrine (see comment for dilution ratio) (1/200,000) Blood Aspirated: No Pain Paresthesia on Injection Noted: No Resistance on Injection: Normal Image Stored and Saved: Yes Events: Uneventful and Well Tolerated (Original case was booked as a left inguinal hernia repair possible bilateral. It became a bilateral inguinal hernia repair intraoperatively)
== END 2019-02-26 15:20 | disposition home or self-care (01) ==
LOC: OR 08:35
PROVIDERS: ATTEND Surgery
DX: K40.20 Bilateral inguinal hernia, without obstruction or gangrene, not specified as recurrent (principal); J44.9 Chronic obstructive pulmonary disease, unspecified; F32.9 Major depressive disorder, single episode, unspecified; Z86.718 Personal history of other venous thrombosis and embolism; Z87.891 Personal history of nicotine dependence; Z79.899 Other long term (current) drug therapy; Z79.51 Long term (current) use of inhaled steroids; Z98.890 Other specified postprocedural states; Z82.49 Family history of ischemic heart disease and other diseases of the circulatory system; Z83.1 Family history of other infectious and parasitic diseases
CPT/HCPCS: 49650; 64488; C1781; J2250; J1644; J1100; J2710; J0690; J2405; J2001; J3010; J1885; J2795; J0330; J2704; J1170

== ENCOUNTER → 2019-11-25 | Outpatient (CLI) | payer MEDICARE ==
--- NOTE | 2019-11-25 11:50 | CTL ---
EXAMINATION TYPE: CT Low Dose Lung DATE OF EXAM ORDERED: 11/25/2019 HISTORY: Personal history tobacco use. Lung cancer screening CT DLP: 30.[address] CTDI: 0.9 mGy Automated exposure control for dose reduction was used. SCREENING VISIT: 1 COMPARISON: None TECHNIQUE: Low dose computed tomography scan was performed through the chest at 1 mm thick sections a nd reconstructed images in the coronal plane at [address] DIAGNOSTIC QUALITY: Satisfactory FINDINGS: LUNG NODULES: None. LUNGS: COPD: Severity: Severe and extensive Fibrosis: Severity: None Lymph nodes: Nonenlarged Other findings: Posterior diaphragmatic hernias containing fat RIGHT PLEURAL SPACE: Effusion: None Calcification: None Thickening: None Pneumothorax: None LEFT PLEURAL SPACE: Effusion: None Calcification: None Thickening: None Pneumothorax: None HEART: Heart Size: Small Coronary calcification: Mild Pericardial effusion: None OTHER FINDINGS: Upper abdomen: Unremarkable Bony thorax: Degenerative disc changes are present within the visualized spine Supraclavicular region: Unremarkable Other: Calcified nodule present in the superior right breast IMPRESSION: Negative FOLLOW UP CT CHEST RECOMMENDATION: [address] LUNG RAD: 1
== END | disposition home or self-care (01) ==
LOC: RADCTMAIN 10:59
PROVIDERS: ATTEND Family Medicine
DX: Z12.2 Encounter for screening for malignant neoplasm of respiratory organs (principal); Z87.891 Personal history of nicotine dependence

== ENCOUNTER 2019-12-15 14:52 | Emergency (ER) | payer MEDICARE ==
[2019-12-15 14:57] VITALS: TEMP 98.5
[2019-12-15] MEDS ORDERED: IPRATROPIUM-ALBUTEROL 3 ML NEB INHALATION STA (15:08)
[2019-12-15] MEDS ORDERED: SODIUM CHLORIDE 0.9% 1,000 ML IV STA (15:08)
[2019-12-15] MEDS ORDERED: methylPREDNISolone SOD SUCCI 125 MG/2 ML VIAL IV STA (15:08)
--- NOTE | 2019-12-15 15:11 | ED ---
SOB HPI - General Chief Complaint: Shortness of Breath Stated Complaint: SOB Time Seen by Provider: 12/15/19 14:59 Source: patient Mode of arrival: wheelchair Limitations: no limitations - History of Present Illness Initial Comments: This is a 69-year-old female with a history of COPD who states she's had progressively worsening shortness breath over last several weeks no chest pain no fevers chills nausea vomiting sweats no phlegm production with any type of cough she is just not getting better in her home medications are not helping. She had some upper back pain a couple days ago none now. Complaint: shortness of breath - Related Data Home Medications Medication Instructions Recorded Confirmed Budesonide [Pulmicort Flexhaler] 1 puff INHALATION RT-BID 10/20/18 12/15/19 Calcium Carbonate [Calcium] 600 mg PO DAILY 10/20/18 12/15/19 Albuterol Sulfate [Ventolin HFA] 2 puff INHALATION RT-QID PRN 12/15/19 12/15/19 Aspirin EC [Ecotrin Low Dose] 81 mg PO DAILY 12/15/19 12/15/19 Multivitamins, Thera [Multivitamin 1 tab PO DAILY 12/15/19 12/15/19 (formulary)] Previous Rx's Medication Instructions Recorded methylPREDNISolone Dose Pack 4 mg PO DIRECTED #21 package 12/15/19 [Medrol Dose Pack] Allergies Allergy/AdvReac Type Severity Reaction Status Date / Time No Known Allergies Allergy Verified 12/15/19 16:13 Review of Systems ROS Statement: Those systems with pertinent positive or pertinent negative responses have been documented in the HPI. ROS Other: All systems not noted in ROS Statement are negative. Past Medical History Past Medical History: COPD, Deep Vein Thrombosis (DVT) Additional Past Medical History / Comment(s): DVT R leg-1970s History of Any Multi-Drug Resistant Organisms: None Reported Past Surgical History: No Surgical Hx Reported Additional Past Surgical History / Comment(s): colonoscopy-normal, D&C Past Anesthesia/Blood Transfusion Reactions: No Reported Reaction Past Psychological History: Depression Past Alcohol Use History: None Reported Past Drug Use History: None Reported - Past Family History Father Family Medical History: Myocardial Infarction (AL) Additional Family Medical History / Comment(s): Father of a AL at the age of 54yrs. He also had cardiac valve disease and tuberculosis. Mother Family Medical History: No Reported History Additional Family Medical History / Comment(s): Mother was healthy and lived to be 93 yrs old. General Exam - General Exam Comments Initial Comments: This is a well-developed asthenic appearing female who is awake alert oriented 3 Limitations: no limitations General appearance: alert, in no apparent distress Head exam: Present: atraumatic, normocephalic, normal inspection Eye exam: Present: normal appearance, PERRL, EOMI. Absent: scleral icterus, conjunctival injection, periorbital swelling ENT exam: Present: normal exam, mucous membranes moist Neck exam: Present: normal inspection, full ROM, other (No stridor JVD or bruits). Absent: tenderness, meningismus, lymphadenopathy Respiratory exam: Present: wheezes, accessory muscle use, decreased breath sounds. Absent: respiratory distress, rales, rhonchi, stridor Cardiovascular Exam: Present: regular rate, normal rhythm, normal heart sounds. Absent: systolic murmur, diastolic murmur, rubs, gallop, clicks GI/Abdominal exam: Present: soft, normal bowel sounds. Absent: distended, tenderness, guarding, rebound, rigid Extremities exam: Present: normal inspection, full ROM, normal capillary refill. Absent: tenderness, pedal edema, joint swelling, calf tenderness Back exam: Present: normal inspection Neurological exam: Present: alert, oriented X3, CN II-XII intact Psychiatric exam: Present: normal affect, normal mood Skin exam: Present: warm, dry, intact, normal color. Absent: rash Course Vital Signs 12/15/19 12/15/19 12/15/19 14:54 15:41 15:56 Temperature 98.5 F Pulse Rate 77 79 Respiratory 22 16 Rate Blood Pressure 128/77 O2 Sat by Pulse 97 Oximetry 12/15/19 16:04 Temperature Pulse Rate 79 Respiratory Rate Blood Pressure O2 Sat by Pulse Oximetry Medical Decision Making - Medical Decision Making Patient did get some improvement after the initial treatment she did desaturate on ambulation. She states she is feeling much improved though I did offer her admission she does not want to be admitted at this time. Patient discharged with a prescription for oral steroids. We did discuss return parameters and open offer to be reevaluated. She and her are in agreement. Additionally she is seen Dr. Dill in the past she will follow-up with him. - Lab Data Result diagrams: 12/15/19 15:18 12/15/19 15:18 Lab Results 12/15/19 12/15/19 12/15/19 Range/Units 15:18 15:18 15:18 WBC 5.6 (3.8-10.6) k/uL RBC 4.20 (3.80-5.40) m/uL Hgb 12.7 (11.4-16.0) gm/dL Hct 40.2 (34.0-46.0) % MCV 95.7 (80.0-100.0) fL MCH 30.2 (25.0-35.0) pg MCHC 31.5 (31.0-37.0) g/dL RDW 13.0 (11.5-15.5) % Plt Count 407 (150-450) k/uL Neutrophils % 60 % Lymphocytes % 24 % Monocytes % 8 % Eosinophils % 4 % Basophils % 1 % Neutrophils # 3.3 (1.3-7.7) k/uL Lymphocytes # 1.3 (1.0-4.8) k/uL Monocytes # 0.5 (0-1.0) k/uL Eosinophils # 0.2 (0-0.7) k/uL Basophils # 0.1 (0-0.2) k/uL PT 9.7 (9.0-12.0) sec INR 0.9 (<1.2) APTT 22.2 (22.0-30.0) sec D-Dimer 0.22 (<0.60) mg/L FEU Sodium 135 L (137-145) mmol/L Potassium 4.2 (3.5-5.1) mmol/L Chloride 100 (98-107) mmol/L Carbon Dioxide 28 (22-30) mmol/L Anion Gap 7 mmol/L BUN 23 H (7-17) mg/dL Creatinine 0.88 (0.52-1.04) mg/dL Est GFR (CKD-EPI)AfAm 78 (>60 ml/min/1.73 sqM) Est GFR (CKD-EPI)NonAf 68 (>60 ml/min/1.73 sqM) Glucose 121 H (74-99) mg/dL Plasma Lactic Acid Gerardo (0.7-2.0) mmol/L Calcium 9.7 (8.4-10.2) mg/dL Magnesium 2.1 (1.6-2.3) mg/dL Total Bilirubin 0.3 (0.2-1.3) mg/dL AST 40 H (14-36) U/L ALT 21 (4-34) U/L Alkaline Phosphatase 49 (38-126) U/L Troponin I (0.000-0.034) ng/mL NT-Pro-B Natriuret Pep pg/mL Total Protein 6.4 (6.3-8.2) g/dL Albumin 4.1 (3.5-5.0) g/dL 12/15/19 12/15/19 12/15/19 Range/Units 15:18 15:18 15:18 WBC (3.8-10.6) k/uL RBC (3.80-5.40) m/uL Hgb (11.4-16.0) gm/dL Hct (34.0-46.0) % MCV (80.0-100.0) fL MCH (25.0-35.0) pg MCHC (31.0-37.0) g/dL RDW (11.5-15.5) % Plt Count (150-450) k/uL Neutrophils % % Lymphocytes % % Monocytes % % Eosinophils % % Basophils % % Neutrophils # (1.3-7.7) k/uL Lymphocytes # (1.0-4.8) k/uL Monocytes # (0-1.0) k/uL Eosinophils # (0-0.7) k/uL Basophils # (0-0.2) k/uL PT (9.0-12.0) sec INR (<1.2) APTT (22.0-30.0) sec D-Dimer (<0.60) mg/L FEU Sodium (137-145) mmol/L Potassium (3.5-5.1) mmol/L Chloride (98-107) mmol/L Carbon Dioxide (22-30) mmol/L Anion Gap mmol/L BUN (7-17) mg/dL Creatinine (0.52-1.04) mg/dL Est GFR (CKD-EPI)AfAm (>60 ml/min/1.73 sqM) Est GFR (CKD-EPI)NonAf (>60 ml/min/1.73 sqM) Glucose (74-99) mg/dL Plasma Lactic Acid Gerardo 1.3 (0.7-2.0) mmol/L Calcium (8.4-10.2) mg/dL Magnesium (1.6-2.3) mg/dL Total Bilirubin (0.2-1.3) mg/dL AST (14-36) U/L ALT (4-34) U/L Alkaline Phosphatase (38-126) U/L Troponin I <0.012 (0.000-0.034) ng/mL NT-Pro-B Natriuret Pep 72 pg/mL Total Protein (6.3-8.2) g/dL Albumin (3.5-5.0) g/dL - EKG Data -: EKG Interpreted by Me EKG shows normal: sinus rhythm (Sinus rhythm a 73. Interval 154 QRS 86 QT since QTC 366/403 nonspecific T-wave configuration) - Radiology Data Radiology results: report reviewed (I did review the imaging and report no acute findings.), image reviewed Disposition Clinical Impression: Acute exacerbation of chronic obstructive pulmonary disease Disposition: HOME SELF-CARE Condition: Good Instructions (If sedation given, give patient instructions): COPD (Chronic Obstructive Pulmonary Disease) (ED) Prescriptions: methylPREDNISolone Dose Pack [Medrol Dose Pack] 4 mg PO DIRECTED #21 package Is patient prescribed a controlled substance at d/c from ED?: No Referrals: Joshua Rojas [Primary Care Provider] - 1-2 days Chapis Dill MD [STAFF PHYSICIAN] - 1-2 days
[2019-12-15 15:38] LABS: Basophils # (A) 0.1 k/uL (0-0.2); Basophils % (A) 1 %; Eosinophils # (A) 0.2 k/uL (0-0.7); Eosinophils % (A) 4 %; HCT 40.2 % (34.0-46.0); HGB 12.7 gm/dL (11.4-16.0); Lymphocytes # (A) 1.3 k/uL (1.0-4.8); Lymphocytes % (A) 24 %; MCH 30.2 pg (25.0-35.0); MCHC 31.5 g/dL (31.0-37.0); MCV 95.7 fL (80.0-100.0); Monocytes # (A) 0.5 k/uL (0-1.0); Monocytes % (A) 8 %; Neutrophils # (A) 3.3 k/uL (1.3-7.7); Neutrophils % (A) 60 %; Platelet Count 407 k/uL (150-450); WBC 5.6 k/uL (3.8-10.6)
--- NOTE | 2019-12-15 15:42 | XR ---
EXAMINATION TYPE: XR chest 2V DATE OF EXAM: 12/15/2019 COMPARISON: 04/28/2016 HISTORY: Shortness of breath TECHNIQUE: Frontal and lateral views of the chest are obtained. FINDINGS: Scattered senescent parenchymal changes noted. Hyperinflation compatible with COPD. Calcified granulo ma stable right midlung zone. No evidence for infiltrate. No evidence for atelectasis. Heart size is stable. Mediastinal structures are stable and grossly unremarkable. No evidence for hilar prominence. Degenerative changes dorsal spine. IMPRESSION: 1. No evidence for acute pulmonary disease.
[2019-12-15 15:53] LABS: Albumin 4.1 g/dL (3.5-5.0); Calcium 9.7 mg/dL (8.4-10.2); Magnesium 2.1 mg/dL (1.6-2.3); Potassium 4.2 mmol/L (3.5-5.1); Total Bilirubin 0.3 mg/dL (0.2-1.3); Total Protein 6.4 g/dL (6.3-8.2)
[2019-12-15 15:54] LABS: D-Dimer 0.22 mg/L FEU (<0.60); INR 0.9 (<1.2); Partial Thromboplastin Time 22.2 sec (22.0-30.0); Prothrombin Time 9.7 sec (9.0-12.0)
[2019-12-15 17:17] VITALS: BP 117/85; PULSE 85; RESP 18
== END 2019-12-15 17:20 | disposition home or self-care (01) ==
LOC: EC 14:52
DX: J44.1 Chronic obstructive pulmonary disease with (acute) exacerbation (principal); Z79.82 Long term (current) use of aspirin; Z79.51 Long term (current) use of inhaled steroids; Z86.718 Personal history of other venous thrombosis and embolism
CPT/HCPCS: 36415; 94640; 93005; 85379; 83880; 80053; 83605; 83735; 84484; 85025; 85610; 85730; 71046; 99285; 96374; 96361 ×2; J2930

== ENCOUNTER → 2019-12-30 | Outpatient (CLI) | payer MEDICARE ==
--- NOTE | 2019-12-30 15:21 | BD ---
EXAMINATION TYPE: Axial Bone Density DATE OF EXAM: 12/30/2019 COMPARISON: 06/07/2016 DEXA bone scan. CLINICAL HISTORY: Postmenopausal female. Height: 60 IN Weight: 94.5 LBS RISK FACTORS HISTORY OF: History of Wrist Fracture: YES RT YEAR 1997 Family History of Osteoporosis: YES 2 SISTERS Active: YES Postmenopausal woman: AGE 49 MEDICATIONS: Additional Medications: CALCIUM, VIT D, INHALERS FOR COPD, EXAM MEASUREMENTS: Bone mineral densitometry was performed using the [email or web address] System. Bone mineral density as measured about the Lumbar spine is: ----- L1-L4(G/cm2): 0.782 T Score Values are as follows: ----- L2: -4.8 ----- L3: -2.9 ----- L4: -1.8 ----- L1-L4: -3.3 Bone mineral density has: Increased 5.1% since study of: Bone mineral density about the R hip (g/cm2): 0.553 Bone mineral density about the L hip (g/cm2): 0.552 T Score values are as follows: -----R Neck: -3.5 -----L Neck: -3.5 -----R Total: -3.5 -----L Total: -3.6 Bone mineral density has: Decreased -1.1% since study of: 06/07/2016 IMPRESSION: Osteoporosis (T Score less than -2.5) remains present. There remains increased fracture risk and therapy is usually indicated based on age. Re-Screen 1-2 years. NOTE: T-SCORE=SD OF THE YOUNG ADULT MEAN.
== END | disposition home or self-care (01) ==
LOC: RADBDWWP 13:12
PROVIDERS: ATTEND Family Medicine
DX: M81.0 Age-related osteoporosis without current pathological fracture (principal)
CPT/HCPCS: 77080

== ENCOUNTER → 2020-01-08 | Outpatient (CLI) | payer MEDICARE ==
--- NOTE | 2020-01-09 12:02 | MM ---
Reason for exam: screening (asymptomatic). Last mammogram was performed 3 years and 7 months ago. History: Patient is postmenopausal and had first child at age 33. Family history of breast cancer in sister at age 55. Physical Findings: A clinical breast exam by your physician is recommended on an annual basis and results should be correlated with mammographic findings. MG Screening Mammo w CAD Bilateral CC and MLO view(s) were taken. Prior study comparison: June 07, 2016, bilateral MG 3d screening mammo w/cad. May 18, 2008, bilateral digital screening mammogram. The breast tissue is extremely dense which could obscure a lesion on mammography. Stable benign calcifications. There is no discrete abnormality. No significant changes when compared with prior studies. ASSESSMENT: Benign, BI-RAD 2 RECOMMENDATION: Routine screening mammogram of both breasts in 1 year.
== END | disposition home or self-care (01) ==
LOC: RADMAMWWP 10:10
PROVIDERS: ATTEND Family Medicine
DX: Z12.31 Encounter for screening mammogram for malignant neoplasm of breast (principal)
CPT/HCPCS: 77067

== ENCOUNTER → 2022-04-03 | Outpatient (CLI) | payer MEDICARE ==
--- NOTE | 2022-04-03 09:28 | CT ---
EXAMINATION TYPE: CT iac wo con CT DLP: 150 mGycm, Automated exposure control for dose reduction was used. DATE OF EXAM: 04/03/2022 8:56 AM INDICATION: Patient age:Female; 71 years old; Reason for study: H65.32 CHRONIC MUCOID OTITIS MEDIA, LEFT EAR; COMPARISON: 10/11/2018. TECHNIQUE: Multiple thin axial images were obtained through the temporal bones and internal auditory canals. Additional coronal reformatted images were obtained. No IV contrast was utilized. CT Contrast: Contrast used: none. FINDINGS: Right Temporal Bone: External Ear: The external auditory canal is unremarkable, The tympanic membrane is present and unrem arkable. Middle Ear: The ossicles demonstrate a normal appearance. Prussak's space is clear and the scutum i s intact. There is no evidence of osseous erosion and the tegmen tympani is intact. Inner Ear: Cochlea, vestibule and semi circular canals are unremarkable. No evidence of carotid ruben l dehiscence. Two and a half turns of the cochlea are identified. The vestibular aqueduct is not enl arged. Mastoid Air Cells: The mastoid air cells are clear. The tegmen mastoideum is intact. The aditus ad an trum is clear. Internal Auditory Canal: The internal auditory canal is unremarkable. Left Temporal Bone: External Ear: The external auditory canal is unremarkable, The tympanic membrane is present and unrem arkable. Middle Ear: The ossicles demonstrate a normal appearance. There is opacification of the epitympanum around the ossicles within the mesotympanum and hypotympanum. There is no evidence of osseous erosio n and the tegmen tympani is intact. Inner Ear: Cochlea, vestibule and semi circular canals are unremarkable. No evidence of carotid ruben l dehiscence. Two and a half turns of the cochlea are identified. The vestibular aqueduct is not enl arged. Mastoid Air Cells: A majority of the mastoid air cells are opacified. The tegmen mastoideum is intact . The aditus ad antrum is opacified. Internal Auditory Canal: The internal auditory canal is unremarkable. IMPRESSION: Left middle ear and mastoid air cell opacities likely representing effusions correlate for otomastoid itis. New from 10/21/2018 study.
== END | disposition home or self-care (01) ==
LOC: RADCTMAIN 08:38
PROVIDERS: ATTEND Otolaryngology
DX: H65.32 Chronic mucoid otitis media, left ear (principal)
CPT/HCPCS: 70480

== ENCOUNTER 2023-12-14 03:05 | Emergency (ER) | payer MEDICARE ==
[2023-12-14] MEDS ORDERED: ONDANSETRON 4 MG/2 ML VIAL ONE (14:11)
[2023-12-14] MEDS ORDERED: methylPREDNISolone SOD SUCCI 125 MG/2 ML VIAL ONE (14:11)
[2023-12-14] MEDS ORDERED: KETOROLAC 15 MG/ML 1 ML VIAL ONE (14:11)
[2023-12-14] MEDS ORDERED: SODIUM CHLORIDE 0.9% 1,000 ML BAG ONE (15:00)
[2023-12-14] MEDS ORDERED: IPRATROPIUM-ALBUTEROL 3 ML NEB ONE (15:29)
--- NOTE | 2024-01-24 12:27 | XR ---
EXAMINATION TYPE: XR chest 2V DATE OF EXAM: 12/14/2023 CLINICAL INDICATION: 73 old with history of SOB and migraine. Dx with Pneumonia 1 week ago.; COMPARISON: None TECHNIQUE: XR chest 2V Frontal and lateral views of the chest. FINDINGS: Lungs/Pleura: Subsegmental atelectasis and scarring present in the lung bases. No evidence of pleural effusion or pneumothorax. Pulmonary vascularity: Unremarkable. Heart/mediastinum: Cardiomediastinal silhouette is unremarkable. Musculoskeletal: No acute osseous pathology. IMPRESSION: No acute cardiopulmonary disease/process. MTDD
== END 2023-12-14 17:30 | disposition home or self-care (01) ==
LOC: EC 03:05
DX: U07.1 COVID-19 (principal)
CPT/HCPCS: 71046; 93005; 96374; 96375; 99284